=== PATIENT | female | born 1980 | race Caucasian/White ===

== ENCOUNTER → 2021-02-07 10:53 | Outpatient (CLI) | payer SELFPAY ==
[2021-02-07 10:05] VITALS: BMI 28.5
[2021-02-07 11:24] LABS: Absolute Lymphocyte Count 1.86 X10^3/uL (0.83-4.51); Absolute Neutrophil Count 6.4 X10^3/uL (2.0-7.7); Basophil# 0.05 X10^3/uL; Basophil% 0.5 % (0-1); Eosinophil# 0.19 X10^3/uL; Hematocrit 41.8 % (37-47); Hemoglobin 14.3 g/dL (12.0-15.0); Lymphocyte # 1.86 X10^3/ul (0.83-4.51); Lymphocyte % 19.8 % (19-41); Mean Corp Hgb Conc 34.2 g/dL (32-36); Mean Corpuscular Hgb 30.5 pg (27.0-32.0); Mean Corpuscular Volume 89.1 fL (81-99); Mean Platelet Vol. 9.2 fl (6.2-12.0); Monocyte# 0.84 X10^3/uL; Monocyte% 8.9 % (0-10); NRBC Flagged by Analyzer 0 % (0-5); Neutrophil # 6.43 X10^3/uL (2.7-7.7); Neutrophil % 68.5 % (47-70); Platelet Count 264 K/mm3 (150-450); RBC Distribution Width SD 38.5 fl (35.1-43.9); Red Blood Count 4.69 M/mm3 (4.2-5.4); White Blood Count 9.4 K/mm3 (4.4-11.0)
[2021-02-07 12:31] LABS: HIV - WCH Non-Reactive (Nonreactive); Hepatitis B Surface Antigen Non-Reactive (Nonreactive); Hepatitis C Antibody Non-Reactive (Nonreactive); Rubella IgG Reactive (Nonreactive); Syphilis Antibodies Non-reactive
[2021-02-07 17:54] LABS: Amphetamine Urine VISTA NEGATIVE (<1000 ng/mL); Barbiturate Urine VISTA NEGATIVE (< 200 ng/mL); Benzodiazepine Urine VISTA NEGATIVE (< 200 ng/mL); Cocaine Urine VISTA NEGATIVE (< 300 ng/mL); Ecstacy Urine VISTA NEGATIVE (< 500 ng/mL); Methadone Urine VISTA NEGATIVE (< 300 ng/mL); PCP Urine VISTA NEGATIVE (< 25 ng/mL); THC Urine VISTA NEGATIVE (< 50 ng/mL); Vista UDS pH Range 6
[2021-02-11 03:06] LABS: Chlamydia By Nucleic Acid AMP Negative (Negative)
[2021-02-11 09:49] LABS: Gonococcus By Nucleic Acid AMP Negative (Negative)
[2021-02-11 17:26] LABS: HPV APTIMA, High Risk Negative (Negative)
== END ==
PROVIDERS: PCP Family Medicine; Referring Provider Obstetrics & Gynecology; Visit Provider Obstetrics & Gynecology
DX: O09.91 Supervision of high risk pregnancy, unspecified, first trimester (principal); O09.11 Supervision of pregnancy with history of ectopic pregnancy, first trimester; O09.521 Supervision of elderly multigravida, first trimester; Z3A.00 Weeks of gestation of pregnancy not specified; Z12.4 Encounter for screening for malignant neoplasm of cervix
CPT/HCPCS: 36415; 80307; 85025; 86703; 86762; 86780; 86803; 86850; 86900; 86901; 87086; 87088; 87340; 87491; 87591; 87624; 88175; G0145

== ENCOUNTER → 2021-05-08 15:58 | Outpatient (CLI) | payer SELFPAY ==
--- NOTE | 2021-05-08 16:12 | US_ITS ---
STUDY: SECOND AND THIRD TRIMESTER OBSTETRICAL ULTRASOUND REASON FOR EXAM: Female, 40 years old anatomy TECHNIQUE: Transabdominal and Transvaginal PRIOR ULTRASOUND: None. FINDINGS: There is a single intrauterine fetus. The fetus is in a cephalic presentation. There is demonstrated cardiac activity with a heart rate of 153 bpm. There is a normal amniotic fluid volume. The largest amniotic fluid pocket measures 3.8 cm.The placenta is fundal in location. The cervix measures 4.9 cm in length and is closed. BPD: 4.8 cm = 20 weeks, 3 day(s) HC: 17.1 cm = 19 weeks, 5 day(s) AC: 14.6 cm = 19 weeks, 6 day(s) FL: 3 cm = 19 weeks, 2 day(s) EGA by ultrasound: 19 weeks 5 day(s) ENZO by ultrasound: 09/27/21 Estimated weight: 313 grams Weight percentile: 56 % ANATOMY: Cranium: Normal lateral ventricles. Normal choroid plexus. Normal cerebellum. Normal cisterna magna. Normal face, nose and lips. Chest: Normal 4-chamber heart. Abdomen/Pelvis: Normal diaphragm. Normal stomach. Normal abdominal wall. Marginal cord insertion. Normal 3 vessel cord. Normal kidneys. Normal bladder. Spine: Normal cervical spine. Normal thoracic spine. Normal lumbar spine. Normal sacrum. Extremities: Normal bilateral upper extremities. Normal bilateral lower extremities. IMPRESSION: Living intrauterine with estimated gestational age of 19 weeks and 5 days. Marginal cord insertion. Otherwise, no obvious anomalies. Electronically Signed: Maximus Ocampo MD at 18:27 EDT Tel , Service support , STUDY: SECOND AND THIRD TRIMESTER OBSTETRICAL ULTRASOUND REASON FOR EXAM: Female, 40 years old anatomy TECHNIQUE: Transabdominal and Transvaginal PRIOR ULTRASOUND: None. FINDINGS: There is a single intrauterine fetus. The fetus is in a cephalic presentation. There is demonstrated cardiac activity with a heart rate of 153 bpm. There is a normal amniotic fluid volume. The largest amniotic fluid pocket measures 3.8 cm.The placenta is fundal in location. The cervix measures 4.9 cm in length and is closed. BPD: 4.8 cm = 20 weeks, 3 day(s) HC: 17.1 cm = 19 weeks, 5 day(s) AC: 14.6 cm = 19 weeks, 6 day(s) FL: 3 cm = 19 weeks, 2 day(s) EGA by ultrasound: 19 weeks 5 day(s) ENZO by ultrasound: 09/27/21 Estimated weight: 313 grams Weight percentile: 56 % ANATOMY: Cranium: Normal lateral ventricles. Normal choroid plexus. Normal cerebellum. Normal cisterna magna. Normal face, nose and lips. Chest: Normal 4-chamber heart. Abdomen/Pelvis: Normal diaphragm. Normal stomach. Normal abdominal wall. Marginal cord insertion. Normal 3 vessel cord. Normal kidneys. Normal bladder. Spine: Normal cervical spine. Normal thoracic spine. Normal lumbar spine. Normal sacrum. Extremities: Normal bilateral upper extremities. Normal bilateral lower extremities. US/OB Anatomy Scan IMPRESSION: Living intrauterine with estimated gestational age of 19 weeks and 5 days. Marginal cord insertion. Otherwise, no obvious anomalies. Electronically Signed: Maximus Ocampo MD at 18:28 EDT Tel , Service support ,
== END ==
PROVIDERS: PCP Family Medicine; Referring Provider Obstetrics & Gynecology; Visit Provider Obstetrics & Gynecology
DX: O09.92 Supervision of high risk pregnancy, unspecified, second trimester (principal); Z3A.19 19 weeks gestation of pregnancy
CPT/HCPCS: 76805; 76817

== ENCOUNTER 2021-07-09 12:25 | Outpatient (CLI) | payer SELFPAY ==
--- NOTE | 2021-07-09 12:30 | US_ITS ---
STUDY: SECOND AND THIRD TRIMESTER OBSTETRICAL ULTRASOUND - LIMITED REASON FOR EXAM: Female, 40 years old. marginal cord insertion PRIOR ULTRASOUND: .. TECHNIQUE: Transabdominal TECHNICAL QUALITY: Adequate. FINDINGS: There is a single intrauterine fetus. The fetus is in a cephalic presentation. There is demonstrated cardiac activity with a heart rate of 144 bpm. There is a normal amniotic fluid volume. The largest amniotic fluid pocket measures 4.5 cm. The amniotic fluid index (MARGE) is 14.2 cm. The placenta is fundal in location. There are Grade 0 placental changes. The cervix measures cm in length: 4.6. BIOMETRY: BPD: 71 mm: 28 weeks, 4 days HC: 266 mm: 28 weeks, 6 days AC: 243 mm: 28 weeks, 4 days FL: 54 mm: 28 weeks, 2 days CI: 76 FL/AC: 22 FL/BPD: 75 HC/AC: 1.09 age by current US: 28 weeks, 3 days. ENZO by current US: 3.27.22. Estimated weight: 1255 grams, +/- 188 grams, 43.6 %. age by prior US: 28 weeks, 4 days. ENZO by prior US: 3.26.22. Age by LMP: 28 weeks, 3 days. ENZO by LMP: 3.27.22. ANATOMY: There is a marginal cord insertion. It is 19mm from the edge of the placenta. US/OB Limited With Biometrics IMPRESSION: There is a single live intrauterine with a heart rate of 144 bpm. age by current US: 28 weeks, 3 days. ENZO by current US: 3.27.22. Estimated weight: 1255 grams, +/- 188 grams, 43.6 %. There is a marginal cord insertion. It is 19mm from the edge of the placenta. Electronically Signed: Parish Michelle MD at 15:00 EST , Service support ,
[2021-07-09 15:19] LABS: Absolute Lymphocyte Count 1.81 X10^3/uL (0.83-4.51); Absolute Neutrophil Count 8.3 X10^3/uL (2.0-7.7); Basophil# 0.04 X10^3/uL; Basophil% 0.3 % (0-1); Eosinophil# 0.42 X10^3/uL; Eosinophils% 3.7 % (0-5); Hematocrit 35.3 % (37-47); Hemoglobin 12.2 g/dL (12.0-15.0); Lymphocyte # 1.81 X10^3/ul (0.83-4.51); Lymphocyte % 15.8 % (19-41); Mean Corp Hgb Conc 34.6 g/dL (32-36); Mean Corpuscular Hgb 31.3 pg (27.0-32.0); Mean Corpuscular Volume 90.5 fL (81-99); Monocyte# 0.86 X10^3/uL; Monocyte% 7.5 % (0-10); NRBC Flagged by Analyzer 0 % (0-5); Neutrophil # 8.27 X10^3/uL (2.7-7.7); Neutrophil % 72.3 % (47-70); Platelet Count 241 K/mm3 (150-450); RBC Distribution Width CV 12.5 % (11.6-14.6); RBC Distribution Width SD 40.9 fl (35.1-43.9); White Blood Count 11.5 K/mm3 (4.4-11.0)
[2021-07-09 15:29] LABS: Glucose Challenge Gest 1H 50g 120 mg/dL (70-140)
== END 2021-07-09 23:59 | disposition short-term general hospital (02) ==
PROVIDERS: Obstetrics & Gynecology; PCP Family Medicine; Referring Provider Nurse Practitioner Women's Health; Visit Provider Nurse Practitioner Women's Health
DX: O43.123 Velamentous insertion of umbilical cord, third trimester (principal); Z3A.28 28 weeks gestation of pregnancy; Z13.1 Encounter for screening for diabetes mellitus
CPT/HCPCS: 36415; 76816; 82950; 85025

== ENCOUNTER 2021-08-08 12:17 | Outpatient (CLI) | payer SELFPAY ==
--- NOTE | 2021-08-08 12:21 | US_ITS ---
STUDY: SECOND AND THIRD TRIMESTER OBSTETRICAL ULTRASOUND - LIMITED REASON FOR EXAM: Female, 40 years old marginal cord insertion, growth LMP: 12/22/2020. PRIOR ULTRASOUND: Comparison is made with prior study dated 01/06/2022. TECHNIQUE: Transabdominal TECHNICAL QUALITY: Adequate. FINDINGS: There is a single intrauterine fetus. The fetus is in a cephalic presentation. There is demonstrated cardiac activity with a heart rate of 144 bpm. There is a normal amniotic fluid volume. The largest amniotic fluid pocket measures 4 cm. The amniotic fluid index (MARGE) is 13.6 cm. The placenta is anterior and fundal in location and is not low lying. There are Grade 1 placental changes. The cervix measures 3.81 cm in length. Once again, the marginal cord insertion is at 1.9 cm from the edge of the placenta. BIOMETRY: BPD: 8.4 cm: 32 weeks, 3 days HC: 30.13 cm: 33 weeks, 4 days AC: 28.15 cm: 32 weeks, 2 days FL: 6.34 cm: 32 weeks, 6 days Age by LMP: 32 weeks, 5 days. ENZO by LMP: 09/28/2021. age by prior US: 32 weeks, 5 days. ENZO by prior US: 09/28/2021. age by current US: 32 weeks, 6 days. ENZO by current US: 09/27/2021. Estimated weight: 1988 grams, +/- 290 grams, 33 percentile. US/OB Limited With Biometrics IMPRESSION: Single live intrauterine gestation with a mean gestational age of 32 weeks and 5 days. The measurements obtained today fall within normal expected range. Stable appearance of the marginal cord insertion at 1.9 cm from the placental edge. Electronically Signed: Kvng Boothe MD at 13:33 EST ,
== END 2021-08-08 23:59 | disposition short-term general hospital (02) ==
LOC: US 12:18
PROVIDERS: PCP Family Medicine; Referring Provider Nurse Practitioner Women's Health; Visit Provider Nurse Practitioner Women's Health
DX: Z34.93 Encounter for supervision of normal pregnancy, unspecified, third trimester (principal); Z3A.32 32 weeks gestation of pregnancy
CPT/HCPCS: 76816

== ENCOUNTER 2021-09-05 14:30 | Outpatient (CLI) | payer SELFPAY ==
--- NOTE | 2021-09-05 14:33 | US_ITS ---
STUDY: SECOND AND THIRD TRIMESTER OBSTETRICAL ULTRASOUND - LIMITED REASON FOR EXAM: Female, 41 years old. growth PRIOR ULTRASOUND: 2.. TECHNIQUE: Transabdominal TECHNICAL QUALITY: Adequate. FINDINGS: There is a single intrauterine fetus. The fetus is in a cephalic presentation. There is demonstrated cardiac activity with a heart rate of 145 bpm. There is a normal amniotic fluid volume. The largest amniotic fluid pocket measures 3.5 cm. The amniotic fluid index (MARGE) is 9.8 cm. The placenta is fundal in location. There are Grade 3 placental changes. The cervix is obscured by overlying bowel gas and cannot be identified. . BIOMETRY: BPD: 88 mm: 35 weeks, 2 days HC: 321 mm: 36 weeks, 2 days AC: 327 mm: 36 weeks, 4 days FL: 67 mm: 34 weeks, 4 days CI: NA FL/AC: 20 FL/BPD: 77 HC/AC: .98 age by current US: 36 weeks, 0 days. ENZO by current US: 4.1.22. Estimated weight: 2821 grams, +/- 423 grams, 36 %. age by prior US: 36 weeks, 6 days. ENZO by prior US: 3.26.22. Age by LMP: 36 weeks, 5 days. ENZO by LMP: 3.27.22. US/OB Limited With Biometrics IMPRESSION: There is a single live intrauterine with a heart rate of 145 bpm. age by current US: 36 weeks, 0 days. ENZO by current US: 4.1.22. Estimated weight: 2821 grams, +/- 423 grams, 36 %. Electronically Signed: Parish Michelle MD at 21:29 EST ,
== END 2021-09-05 23:59 | disposition home or self-care (01) ==
PROVIDERS: PCP Family Medicine; Visit Provider Nurse Practitioner Women's Health
DX: O09.13 Supervision of pregnancy with history of ectopic pregnancy, third trimester (principal); Z3A.32 32 weeks gestation of pregnancy
CPT/HCPCS: 76816; 87077; 87081; 87186

== ENCOUNTER 2021-09-11 12:18 | Inpatient (IN) | payer SELFPAY ==
[2021-09-11] VITALS (57 sets, daily range): BP systolic 86–146; BP diastolic 50–82; PULSE 97–134; TEMP 36.2–36.8; O2SAT 96–100; BMI 31.4
[2021-09-11 12:16] LABS: ROM Internal Control Test YES-OK TO RESULT pt. (Internal QC)
[2021-09-11 12:17] LABS: ROM Patient Test POSITIVE (Negative)
--- NOTE | 2021-09-11 13:14 | HP.PCM.OB_ITS ---
HPI - General General Date of Admission: 09/11/21 HPI Narrative GLORIA CHAPIN, is a 41 y/o @ 37 weeks 4 days F who presents to L&D with rupture of membranes confirmed with ROM+. She denies vaginal bleeding or dec fm. She does not feel contractions yet at this time. Maternal Data Information ENZO Calculator Estimated Delivery Date Method Current WG Current Estimate 09/28/21 Ultrasound #1 37w 4d Other Estimates 09/14/21 LMP (Certain) 39w 4d PFSH PFSH Home Medications Lactobacillus acidophilus 1.5 mg (250 million cell) capsule 100 mmu cells PO DAILY 02/05/21 [History Last Taken 09/10/21 20:00 100 mmu] citalopram 20 mg tablet 20 mg PO DAILY 02/05/21 [History Last Taken 09/10/21 20:00 20 mg] prenat.vits,aissatou,nym-mnnb-lznvb 1 tab PO DAILY 02/05/21 [History Last Taken 09/10/21 20:00 1 tab] Allergy/AdvReac Type Severity Reaction Status Date / Time No Known Allergies Allergy Verified 09/11/21 11:40 Family History Father CAD (coronary artery disease) Myocardial infarction Surgical History H/O unilateral salpingectomy Social History adopted: No household members: spouse current occupational status: employed current occupation: [employer] pets and animals: No Smoking Status: Never smoker alcohol intake: current details: social-not while substance use type: does not use History 2 Elective abortions Hx Para Spontaneous abortions Hx # Term Pregnancies Ectopic pregnancies 1 Hx # Pregnancies Multiple births # of living children Past Pregnancies Del. Date Name GA/Weeks Outcome Route Bth Weight Infant Gen Labor Lgth Anes the malcolm Del [place] Provider FOB Unknown 10/2020 right salpingectomy/Hernandez ectopic Visit Details Expected Delivery Route/Plan Labor Preferences- CB/BF classes: encouraged labor support person: Ariel labor intervention preferences: pain management options preferred: epidural cut cord/dad catch: yes : yes PP control planned: discussed discussed possible routes of delivery and associated risks: [] special requests: [] Plans Covid status: non immune, counseled regarding risk of covid in vs vaccination and declined vaccination Flu vaccine: declines Tdap vaccine: declines Rhogam: na LARC form signed: yes Problem list reviewed and updated with the most current plan of care details and appropriate orders placed. Relevant counseling for the gestational age provided. Continue routine care and follow up unless otherwise noted in visit notes/problem list details OB Flowsheet Initial Weight: Not Recorded Date -?-?-?-?-?-?-?-?-?-?-?-?- EGA Weight BP Urine Prot -?-?-?-?-?-?-?-?-?-?-?-?- Glucose FHR FuHt Pres Dilation -?-?-?-?-?-?-?-?-?-?-?-?- Effaced St Visit Note 02/07/21 -?-?-?-?-?-?-?-?-?-?-?-?- 6w 5d 177 lb 4 oz 120/78 -?-?-?-?-?-?-?-?-?-?-?-?- 113 -?-?-?-?-?-?-?-?-?-?-?-?- GP - CRL 8mm NOT consistent with LMP. New ENZO 09/28/21 02/27/21 -?-?-?-?-?-?-?-?-?-?-?-?- 9w 4d 179 lb 2 oz 130/80 Nega tive -?-?-?-?-?-?-?-?-?-?-?-?- Negative 160 -?-?-?-?-?-?-?-?-?-?-?-?- GP - no cramping or bleeding. FHR now in normal range. 03/24/21 -?-?-?-?-?-?-?-?-?-?-?-?- 13w 1d 175 lb 124/82 Negative -?-?-?-?-?-?-?-?-?-?-?-?- Negative 153 -?-?-?-?-?-?-?-?-?-?-?-?- GP - no cramping or bleeding. Anatomy scan ordered. 04/23/21 -?-?-?-?-?-?-?-?-?-?-?-?- 17w 3d 178 lb 4 oz 122/70 Nega tive -?-?-?-?-?-?-?-?-?-?-?-?- Negative 156 -?-?-?-?-?-?-?-?-?-?-?-?- -No VB,LOF. An atomy US 05/08. Denies concerns. Declines flu vaccine 05/23/21 -?-?-?-?-?-?-?-?-?-?-?-?- 21w 5d 184 lb 120/78 Negative -?-?-?-?-?-?-?-?-?-?-?-?- Negative 150 22 -?-?-?-?-?-?-?-?-?-?-?-?- JV- marginal cor d insertion discussed. plan for weekly growth scans. 06/20/21 -?-?-?-?-?-?-?-?-?-?-?-?- 25w 5d 188 lb 6 oz 126/64 Nega tive -?-?-?-?-?-?-?-?-?-?-?-?- Negative 150 26 -?-?-?-?-?-?-?-?-?-?-?-?- Sm- no vb lof go od fm no regular ctx. 07/09/21 -?-?-?-?-?-?-?-?-?-?-?-?- 28w 3d 192 lb 120/72 Negative -?-?-?-?-?-?-?-?-?-?-?-?- Negative 154 27 -?-?-?-?-?-?-?-?-?-?-?-?- MH-No VB, LOF. G ood FM. 28 wk labs and larc. Declines tdap. 07/25/21 -?-?-?-?-?-?-?-?-?-?-?-?- 30w 5d 194 lb 8 oz 100/60 Nega tive -?-?-?-?-?-?-?-?-?-?-?-?- Negative 160 30 -?-?-?-?-?-?-?-?-?-?-?-?- SM- no vb lof go od fm no regular ctx, co sciatic pain 08/08/21 -?-?-?-?-?-?-?-?-?-?-?-?- 32w 5d 197 lb 111/71 Negative -?-?-?-?-?-?-?-?-?-?-?-?- Negative 145 33 -?-?-?-?-?-?-?-?-?-?-?-?- SM- no vb lof go od fm no regular 08/22/21 -?-?-?-?-?-?-?-?-?-?-?-?- 34w 5d 195 lb 114/70 Negative -?-?-?-?-?-?-?-?-?-?-?-?- Negative 145 35 -?-?-?-?-?-?-?-?-?-?-?-?- SM- no vb lof go od fm no regular ctx 09/05/21 -?-?-?-?-?-?-?-?-?-?-?-?- 36w 5d 197 lb 8 oz 120/64 Trac e -?-?-?-?-?-?-?-?-?-?-?-?- Negative 140 36 Cephalic 0 .5 -?-?-?-?-?-?-?-?-?-?-?-?- SM- no vb lof go od fm no reuglar ctx gbs done 09/11/21 -?-?-?-?-?-?-?-?-?-?-?-?- 37w 4d 197 lb 130/70 Negative -?-?-?-?-?-?-?-?-?-?-?-?- Negative -?-?-?-?-?-?-?-?-?-?-?-?- 09/11/21 -?-?-?-?-?-?-?-?-?-?-?-?- 37w 4d 195 lb 135/82 -?-?-?-?-?-?-?-?-?-?-?-?- -?-?-?-?-?-?-?-?-?-?-?-?- ROS Constitutional Constitutional: Denies change in weight, fatigue, fever(s), headache(s), poor appetite or weakness Eyes Eyes: Denies blurry vision, change in vision, seeing flashes or spots in vision ENT HEENT: Denies dizziness, headache(s), loss taste/smell or sore throat Cardiovascular Cardiovascular: Denies chest pain, dizziness, dyspnea, irregular heart rhythm, leg edema, palpitations, rapid heart rate or vomiting Respiratory/Chest Respiratory/Chest: Denies chest tightness, cough, dyspnea or breast pain Gastrointestinal Gastrointestinal: Denies abdominal pain, anorexia, constipation, cramping, diarrhea, hemorrhoids, vomiting or weight changes Genitourinary Genitourinary: Denies dysuria, flank pain, genital lesions, genital pain, urinary frequency or urinary urgency Musculoskeletal Musculoskeletal: Denies back pain, difficulty walking, joint pain, limited range of motion, muscle cramps or numbness Integumentary Integumentary: Denies lesions or unusual bruising Neurologic Neurologic: Denies abnormal movements, abnormal speech, dizziness, numbness, seizure-like activity or syncope Psychiatric Psychiatric: Denies anxiety, behavioral changes, change in appetite, change in libido, cognitive impairment, confusion, depression, difficulty concentrating, hallucinations or suicidal thoughts Endocrine Endocrinology: Denies excessive sweating, polydipsia or polyuria Hematologic/Lymphatic Hematologic/Lymphatic: Denies easy bleeding, easy bruising or lymphadenopathy Allergic/Immunologic Allergic/Immunologic: Denies itchy eyes, lip swelling, seasonal rhinorrhea, rhinitis, throat swelling, tongue swelling, eczemia, wheezing or asthma Vital Signs Vital Signs Vital Signs: 09/11/21 11:36 09/11/21 11:38 Temperature 98.0 F Temperature Source Temporal Pulse Rate 100 Blood Pressure 135/82 H BP Systolic 135 BP Diastolic 82 Weight Weight: 195 lb Body Mass Index (BMI) 31.4 Physical Exam Const alert, oriented x3, no apparent distress and healthy appearing General Appearance: cooperative; Negative for anxious HEENT normocephalic Face and Sinus: normal facial exam Eyes EOMs intact bilaterally and no scleral icterus General Eye: normal appearance of both eyes Neck full ROM and supple Lymph Lymphatic: no lymphadenopathy noted Chest Chest: abnormal inspection of the chest Resp normal respiratory effort Effort and Inspection: able to speak in complete sentences Cardio regular rate GI soft to palpation and non-tender Inspection: gravid Palpation: soft; Negative for tender external exam normal Amniotic Fluid: ROM+plus and other cx is 1/ 90/-2, vertex presentation Back/Spine no CVA tenderness Extremity normal to inspection, full ROM and no clubbing, cyanosis or edema General Extremity: Negative for calf tenderness or edema Skin Lesions: no lesions Rashes: no rashes Psych mental status grossly normal Labs Labs Labs: Blood Type A POSITIVE Antibody Screen NEGATIVE Hct 35.3 % (37-47) L Hgb 12.2 g/dL (12.0-15.0) Obstetrics US Syphilis Total Ab Non-reactive Rubella IgG Antibody Reactive (Nonreactive) Hep Bs Antigen Non-Reactive (Nonreactive) Neisseria gonorrhoeae DNA (FAVIAN) Negative (Negative) HIV 1&2 Antibody Non-Reactive (Nonreactive) Glucose 1 Hr 50 gm 120 mg/dL (70-140) Assessment & Plan (1) Positive GBS test: COMMENT: PCN in labor (2) Marginal insertion of umbilical cord: COMMENT: growth US Q4wk at 28 wk(43%) rpt 32 and 36 wk. NL growth on 08/08/21 (3) Anxiety and depression: COMMENT: celexa, counseling encouraged. stable (4) Family history of spina bifida: COMMENT: maternal uncle/hydrocephalic also (5) Supervision of high risk , antepartum: COMMENT: PRR ENZO 09/28/21 Spouse: Ariel (6) : QUALIFIERS: Weeks of gestation: 37 weeks Qualified Code(s): Z3A.37 - 37 weeks gestation of COMMENT: Declines NIPT, carrier, and AFP. anatomy reviewed. GBS positive (7) AMA (advanced maternal age) multigravida 35+: QUALIFIERS: Trimester: first trimester Qualified Code(s): O09.521 - Supervision of elderly multigravida, first trimester COMMENT: Declines genetic testing (8) with history of ectopic : QUALIFIERS: Trimester: first trimester Qualified Code(s): O09.11 - Supervision of with history of ectopic , first trimester COMMENT: 11/01/20 Ashley DUARTE PLAN: Patient presents IOL, plan management for with pitocin. Pain management: plans nitrous gas and possibly epidural. GBS positive- start pcn now. Management of any complications: none I have reviewed the [facility] and made any clinically relevant updates.
[2021-09-11] MEDS: Lactated Ringers 1,000 ML 50 ML IV (13:51)
[2021-09-11 14:03] LABS: Absolute Lymphocyte Count 1.79 X10^3/uL (0.83-4.51); Basophil# 0.03 X10^3/uL; Basophil% 0.3 % (0-1); Eosinophil# 0.32 X10^3/uL; Eosinophils% 3.2 % (0-5); Hematocrit 36.7 % (37-47); Hemoglobin 12.6 g/dL (12.0-15.0); Lymphocyte # 1.79 X10^3/ul (0.83-4.51); Lymphocyte % 17.7 % (19-41); Mean Corp Hgb Conc 34.3 g/dL (32-36); Mean Corpuscular Hgb 30.7 pg (27.0-32.0); Mean Corpuscular Volume 89.3 fL (81-99); Mean Platelet Vol. 9.3 fl (6.2-12.0); Monocyte# 0.92 X10^3/uL; Monocyte% 9.1 % (0-10); NRBC Flagged by Analyzer 0 % (0-5); Neutrophil # 6.99 X10^3/uL (2.7-7.7); Neutrophil % 68.8 % (47-70); Platelet Count 259 K/mm3 (150-450); RBC Distribution Width SD 42.5 fl (35.1-43.9); Red Blood Count 4.11 M/mm3 (4.2-5.4); White Blood Count 10.1 K/mm3 (4.4-11.0)
[2021-09-11] MEDS: Oxytocin 30 units/NS 500 ml 30 UNITS/500 ML IV.SOLN IV (15:14)
[2021-09-11] MEDS: Penicillin G 3,000,000 Units 50 ML 75 UNITS IV ×2 (18:19→22:39)
[2021-09-11] MEDS: Lactated Ringers 500 ML 999 ML IV ×2 (18:56→19:57)
[2021-09-11] MEDS: fentaNYL-bupivacaine (epidural) 100 ML BAG EPIDURAL ×2 (19:31→23:36)
[2021-09-11] MEDS: Lactated Ringers 1,000 ML 200 ML IV (23:32)
[2021-09-12] VITALS (37 sets, daily range): BP systolic 95–128; BP diastolic 53–71; PULSE 102–128; RESP 16–20; TEMP 36.2–36.9; O2SAT 81–100
[2021-09-12] MEDS: Penicillin G 3,000,000 Units 50 ML 75 UNITS IV ×2 (02:27→06:49)
[2021-09-12] MEDS: 0.9% Saline Lock 10 ML Syringe IV (04:24)
[2021-09-12] MEDS: Ondansetron 4 MG/2 ML Vial IV (04:24)
[2021-09-12] MEDS: Lactated Ringers 1,000 ML 200 ML IV (04:38)
[2021-09-12] MEDS: fentaNYL-bupivacaine (epidural) 100 ML BAG EPIDURAL (04:38)
[2021-09-12] MEDS: Oxytocin 30 units/NS 500 ml 30 UNITS/500 ML IV.SOLN 334 UNITS IV (07:32)
--- NOTE | 2021-09-12 08:05 | OP.PCM_ITS ---
Assessment & Plan (1) Positive GBS test: COMMENT: PCN in labor (2) Marginal insertion of umbilical cord: COMMENT: growth US Q4wk at 28 wk(43%) rpt 32 and 36 wk. NL growth on 08/08/21 (3) Anxiety and depression: COMMENT: celexa, counseling encouraged. stable (4) Family history of spina bifida: COMMENT: maternal uncle/hydrocephalic also (5) Supervision of high risk , antepartum: COMMENT: PRR ENZO 09/28/21 Spouse: Ariel (6) : QUALIFIERS: Weeks of gestation: 37 weeks Qualified Code(s): Z3A.37 - 37 weeks gestation of COMMENT: Declines NIPT, carrier, and AFP. anatomy reviewed. GBS positive (7) AMA (advanced maternal age) multigravida 35+: QUALIFIERS: Trimester: first trimester Qualified Code(s): O09.521 - Supervision of elderly multigravida, first trimester COMMENT: Declines genetic testing (8) with history of ectopic : QUALIFIERS: Trimester: first trimester Qualified Code(s): O09.11 - Supervision of with history of ectopic , first trimester COMMENT: 11/01/20 Ashley Son RS Maternal Data Information ENZO Calculator Estimated Delivery Date Method Current WG Current Estimate 09/28/21 Ultrasound #1 37w 5d Other Estimates 09/14/21 LMP (Certain) 39w 5d Vaginal Delivery Maternal Presentation Maternal Presentation: SROM Type of Induction: Pitocin Operative Information Date of Procedure: 09/12/21 Pre-Operative Diagnosis: 37 weeks 2 days , PROM, maternal exhaustion Post-Operative Diagnosis: 37 weeks 2 days , PROM, maternal exhaustion Surgery / Procedure Performed: Vacuum Assisted Vaginal Delivery Type of Anesthesia: Epidural Estimated Blood Loss: 200cc Findings Description of Procedure: Patient began pushing at 4 am and progressed from +1 station to +3 station over 3 hours and requested vacuum assistance. After verbal consent and discussion of the risks, benefits, and alternatives, the kiwi vacuum was applied to the head superior to the posterior fontanelle. The kiwi was activated to the green zone and pulled one time while the patient pushed for 3 ten second intervals . The head was delivered in the DEAN presentation. The head was delivered atraumatically and a loose nuchal cord ?1 was identified and easily reduced over the infant's head. The anterior and posterior shoulders delivered without complication followed by the rest of the infant and the infant was placed on the maternal abdomen. Delayed cord clamping was employed for approximately 60 seconds. Cord was clamped and cut and gentle traction was applied to the cord and the placenta delivered spontaneously immediately foll owing it was noted to be intact with three-vessel cord. The perineum and vagina were inspected and noted to have a second degree laceration. This was repaired using a 2-0 vicryl suture. EBL was 200c. Patient and tolerated delivery well. Presentation: Vertex Amniotic Membrane Rupture Type: Spontaneous Amniotic Fluid Description: Clear Placental Delivery Description: Spontaneous Placenta Disposition: [facility] Cord Vessel Description: 3 Vessels Nuchal Cord Compression: Without compression Infant A Gender: Male (1 minute): 7 (5 minute): 9 Delayed Cord Clamping: Yes Multi Select Codes Urinary/Genital Urinary/Genital CPT Codes: 49677 Vaginal Delivery [facility]
--- NOTE | 2021-09-12 08:14 | PCM.DC ---
Discharge Instructions Diet Discharge Diet: No restrictions Activity Discharge Activity: Return to Normal Activity, May Not Drive (while taking narcotic pain medications.) and May Shower May resume sexual activity in: 4-6 weeks Dressing / Incision Call your doctor if your incision/area has: Continuous Slow Oozing, Sudden Increased Bleeding, Increased Pain/ Swelling, Increased Redness and Foul Smelling Discharge Follow Up Care Please Follow Up With: Kaylan Barker DO When: Call [phone] to make an appointment with your doctor in 6 weeks. If you had elevated blood pressure or 4th degree laceration, you will need to be seen in 2 weeks. Test Results: Test results from this visit will be discussed in further detail at your follow-up appointment, if applicable. Discharge Plan Admission Admit Date/Time: 09/11/21 12:18 Primary Reason for Your Visit: vaginal delivery Attending Provider: Kaylan Barker Primary Care Provider: Hai Doran Discharge Orders/Prescriptions Prescriptions: New ibuprofen 800 mg tablet 800 mg PO Q8H PRN (Reason: pain) 7 Days Qty: 30 RF: 0 Continued citalopram 20 mg tablet 20 mg PO DAILY RF: 0 prenat.vits,aissatou,ibp-wfzq-gxlpp Tablet 1 tab PO DAILY RF: 0 Probiotic Acidophilus 1.5 mg (250 million cell) capsule 100 mmu cells PO DAILY RF: 0 Referrals / Follow Up: Hai Doran DO [Primary Care Provider] - Disposition Disposition (needs filled in before D/C Order can be placed): Home, Self Care
[2021-09-12] MEDS: Benzocaine/Lanolin/Aloe Vera 1 SPRAY EACH TOPICAL (14:38)
[2021-09-12] MEDS: Senna/Docusate Sodium 1 Tablet PO (14:38)
[2021-09-12] MEDS: Ibuprofen 600 MG Tablet PO ×2 (16:29→23:20)
[2021-09-13 00:30] VITALS: BP 111/60; PULSE 108; RESP 18; TEMP 36.1; O2SAT 97
--- NOTE | 2021-09-13 04:02 | PCM.PN.OB ---
Subjective Subjective Patient doing well without complaints. Tolerating PO. Ambulating and voiding without difficulty. feeding well. Denies chest pain, shortness of breath, calf pain/swelling, fevers, chills, lightheadedness. Objective Data Objective Data Vital Signs: Vital Signs Temp Pulse Resp BP Pulse Ox 96.9 F L 108 H 18 111/60 97 09/13/21 00:30 09/13/21 00:30 09/13/21 00:30 09/13/21 00:30 09/13/21 00:30 Oxygen Delivery Method Room Air Weight: 195 lb Body Mass Index (BMI) 31.4 Intake & Output: Intake and Output for Last 24 Hours 09/11/21 09/12/21 09/13/21 23:59 23:59 23:59 Intake Total 2036.97 / 2536.97 2967.30 / 2967.30 Output Total 3100 / 3100 Balance 2036.97 / 1736.97 -132.70 / -132.70 Lab / Micro Data Result Diagrams: 09/11/21 13:40 Micro: Microbiology 09/11/21 13:40 Nasal Secretion SARS-CoV-2 Antigen (Rapid) - Final ROS Constitutional Constitutional: Reports systems reviewed and no addt'l complaints, except as documented Cardiovascular Cardiovascular: Reports systems reviewed and no addt'l complaints, except as documented Respiratory/Chest Respiratory/Chest: Reports systems reviewed and no addt'l complaints, except as documented Gastrointestinal Gastrointestinal: Reports systems reviewed and no addt'l complaints, except as documented Physical Exam Const alert, oriented x3 and no apparent distress HEENT Head and Scalp: atraumatic Resp normal respiratory effort GI soft to palpation and non-tender Bimanual Exam - Vag & Uterus: uterus non-tender Uterus Palpation: uterus fundus firm (below Umbilicus) Assessment & Plan (1) Vaginal delivery: COMMENT: JV VAVD SROM 38 PLAN: s/p PPD # 1 1. routine post delivery care 2. breast feeding- support given 3. rh positive 4. rubella immune
[2021-09-13 04:09] VITALS: BP 102/59; PULSE 103; RESP 16; TEMP 36.2; O2SAT 98
[2021-09-13 08:53] VITALS: BP 121/77; PULSE 106; RESP 16; TEMP 36.2; O2SAT 97
[2021-09-13 11:39] VITALS: BP 126/69; PULSE 117; RESP 16; TEMP 36.3; O2SAT 96
[2021-09-13] MEDS: Ibuprofen 600 MG Tablet PO (11:50)
[2021-09-13 16:25] VITALS: BP 116/71; PULSE 109; RESP 16; TEMP 36.5; O2SAT 97
--- NOTE | 2021-09-13 17:59 | CASEMGMT ---
Social Work Assessment Labor and Delivery Unit Date of Referral: 09/12/2021 Time of Referral: none noted. Referred By: Dr. Kaylan Barker Date of Intervention: 09/13/2021 Time of Intervention: 17:59 Reason for Referral: Mother of baby (MOB) with history of depression and anxiety. History obtained from: MOB, Father of baby (FOB), chart, and nursing staff. Household composition: MOB, FOB, Ariel Montes and now this infant. This is first for both MOB and FOB. Patient's parent/guardian status: MOB and FOB have been for 3 years. MOB reports supportive relationship from FOB. MOB and FOB report that was planned. MOB with miscarriage ?tubal? 3 months prior to becoming with infant. Medical History: MOB with history prior to delivery of this . MOB with vaginal delivery at 37 weeks. Infant born on 09/12/2021 and to be named Aidan Montes. MOB with appropriate care with first visit on 02/07/2021. Infant apgars of 7 and 9 at 1min and 5min. weight of 2630g. MOB plans to breastfeed infant. Educational Status: MOB denies any issues with comprehension or understanding. Financial Status: MOB denies financial concerns. MOB is taking the next ?6 months off? working. FOB reports to be working full-time and is able to have the next week off work to be with MOB and infant. Supplies: MOB reports to have needed infant supplies including a car seat and crib. Childcare/Caregiver(s): MOB plans to be primary caregiver for . MOB not sure if MOB will return to working. Transportation: MOB denies issues or concerns with transportation. Programs/Agencies Involved: MOB denies any active community resource/services. Children Services/Legal Issues: MOB denies any legal issues or history of children services involvement. Behavioral Health Issues: MOB reports history of depression and anxiety. MOB currently prescribed celexa and this is helpful. MOB denies active counseling but reports a history of counseling in 2011. MOB reports history of suicidal thoughts in 2011 and that is when MOB started celexa. MOB denies any current suicidal thoughts, plans, intents or thoughts since 2011. MOB denies suicidal attempt. This mental health social worker able to broach topic of depression and anxiety signs and symptoms with MOB. MOB engaged in conversation with this mental health social worker. Substance Use History: MOB denies substance abuse/use and had negative tox screen on 02/07/2021. PHQ9: Did not trigger. Family/Social Stressors: MOB denies any stressors outside adjusting to live with a . Support Systems: MOB reports support from MOB and FOB?s families. MOB reports that family lives ?just [place] few miles down the road.? Depression and Anxiety/Shaken Baby/Safe Sleeping: This mental health social worker provided MOB with resources on depression and anxiety as well as shaken baby, safe sleeping and local counseling agencies. MOB reports to be comfortable reaching out to certified medical transcriptionist if more support is needed for mental health. MOB and FOB responding appropriately to safe sleeping and shaken baby prompts. ASSESSMENT: This mental health social worker met with MOB and FOB in room along with . MOB attempting to breastfeed infant when this mental health social worker entered the room. Introduced self and mental health social worker role. MOB agreeable to meet with this mental health social worker and provided verbal permission for this mental health social worker to speak openly with FOB present. MOB denies concerns on returning to home. MOB and FOB report a connection with infant. MOB with positive and engaged affect throughout assessment. MOB and FOB both gazing at infant often during assessment. Active support and listening provided. PLAN: Infant to discharge to home with MOB and FOB. Nursing staff updated on above plan. No other services requested or indicated. Candido BRISENO, AMANDA
[2021-09-13 20:10] VITALS: BP 116/75; PULSE 105; RESP 16; TEMP 36.4; O2SAT 98
[2021-09-14 01:20] VITALS: BP 118/70; PULSE 100; RESP 16; TEMP 36.4; O2SAT 97
[2021-09-14] MEDS: Ibuprofen 600 MG Tablet PO ×2 (01:29→08:15)
--- NOTE | 2021-09-14 07:09 | PCM.PN.OB ---
Subjective Subjective Patient doing well without complaints. Tolerating PO. Ambulating and voiding without difficulty. feeding well. Denies chest pain, shortness of breath, calf pain/swelling, fevers, chills, lightheadedness. Objective Data Objective Data Vital Signs: Vital Signs Temp Pulse Resp BP Pulse Ox 97.6 F L 100 16 118/70 97 09/14/21 01:20 09/14/21 01:20 09/14/21 01:20 09/14/21 01:20 09/14/21 01:20 Oxygen Delivery Method Room Air Weight: 195 lb Body Mass Index (BMI) 31.4 Intake & Output: Intake and Output for Last 24 Hours 09/12/21 09/13/21 09/15/21 23:59 23:59 00:59 Intake Total 2967.30 / 2967.30 Output Total 3100 / 3100 Balance -132.70 / -132.70 Lab / Micro Data Result Diagrams: 09/11/21 13:40 Micro: Microbiology 09/11/21 13:40 Nasal Secretion SARS-CoV-2 Antigen (Rapid) - Final ROS Constitutional Constitutional: Reports systems reviewed and no addt'l complaints, except as documented Cardiovascular Cardiovascular: Reports systems reviewed and no addt'l complaints, except as documented Respiratory/Chest Respiratory/Chest: Reports systems reviewed and no addt'l complaints, except as documented Gastrointestinal Gastrointestinal: Reports systems reviewed and no addt'l complaints, except as documented Physical Exam Const alert, oriented x3 and no apparent distress HEENT Head and Scalp: atraumatic Resp normal respiratory effort GI soft to palpation and non-tender Bimanual Exam - Vag & Uterus: uterus non-tender Uterus Palpation: uterus fundus firm (below Umbilicus) Assessment & Plan (1) Vaginal delivery: COMMENT: BOWEN VAVD SROM 38 (2) Anxiety and depression: COMMENT: celexa, counseling encouraged. stable PLAN: s/p PPD # 2 1. routine post delivery care 2. breast feeding- support given 3. rh positive 4. rubella immune
[2021-09-14 08:16] VITALS: BP 131/75; PULSE 107; RESP 16; TEMP 36.2; O2SAT 97
[2021-09-14] MEDS: Senna/Docusate Sodium 1 Tablet PO (13:32)
[2021-09-14 13:34] VITALS: BP 115/69; PULSE 103; RESP 16; TEMP 36.3; O2SAT 96
== END 2021-09-14 15:43 | disposition home or self-care (01) | DRG 807 ==
LOC: WPOUT 12:20 → WP 12:20
PROVIDERS: Admitting Provider Obstetrics & Gynecology; PCP Family Medicine; Referring Provider Obstetrics & Gynecology; Visit Provider Obstetrics & Gynecology
DX: O42.92 Full-term premature rupture of membranes, unspecified as to length of time between rupture and onset of labor (principal); Z37.0 Single live birth; O99.344 Other mental disorders complicating childbirth; F32.A Depression, unspecified; F41.9 Anxiety disorder, unspecified; O43.193 Other malformation of placenta, third trimester; O70.1 Second degree perineal laceration during delivery; O99.824 Streptococcus B carrier state complicating childbirth; O75.81 Maternal exhaustion complicating labor and delivery; O69.81X0 Labor and delivery complicated by cord around neck, without compression, not applicable or unspecified; Z3A.37 37 weeks gestation of pregnancy; Z87.59 Personal history of other complications of pregnancy, childbirth and the puerperium; Z82.79 Family history of other congenital malformations, deformations and chromosomal abnormalities
CPT/HCPCS: 59025; 59050; 84112; 85025; 86850; 86900; 86901; 87426; 99218; J7120; A4216; G0378; J2405

== ENCOUNTER → 2022-11-18 | Outpatient (CLI) | payer SELFPAY ==
--- NOTE | 2022-11-18 13:33 | BI_ITS ---
MAMMOGRAPHY - BILATERAL SCREENING REASON FOR EXAM: Female, 42 years old. Routine annual screening examination. PERTINENT HISTORY: Mother with breast cancer. Aunt with breast cancer. TECHNIQUE: Digital bilateral breast jim (3D mammographic acquisition) in the CC and MLO projections. 2-D mediolateral oblique (MLO) and craniocaudad (CC) views of both breasts were obtained. CAD: Full Field Digital Mammography with Computer Added Detection was performed. COMPARISON: Comparison is made with prior outside examination February 10, 2018. FINDINGS: Breast Composition: The breasts are extremely dense, which lowers the sensitivity of mammography. There are no dominant masses or suspicious calcifications. Stable small benign-appearing bilateral axillary lymph nodes. No other significant abnormalities are identified. There has been no significant change since the prior study. BI/SCRN MAMM (CAD)W/JIM BILAT IMPRESSION: Stable bilateral screening mammogram. Yearly follow-up mammogram recommended. (A) ASSESSMENT CATEGORY: BIRADS Category 2: Benign. A letter regarding these results will be sent to the patient by the facility within 30 days. Approximately 10% of breast cancers are not detected by mammography. A normal mammogram should not delay biopsy of a clinically suspicious abnormality. [id number] Electronically Signed: Kvng Boothe MD at 14:29 EDT ,
== END | disposition home or self-care (01) ==
LOC: OPBI 13:29
PROVIDERS: PCP Family Medicine; Referring Provider Obstetrics & Gynecology; Visit Provider Obstetrics & Gynecology
DX: Z12.31 Encounter for screening mammogram for malignant neoplasm of breast (principal); Z80.3 Family history of malignant neoplasm of breast
CPT/HCPCS: 77063; 77067

== ENCOUNTER → 2023-03-09 | Outpatient (CLI) | payer SELFPAY ==
[2023-03-12 13:07] LABS: Chlamydia By Nucleic Acid AMP Negative (Negative); Gonococcus By Nucleic Acid AMP Negative (Negative)
== END | disposition home or self-care (01) ==
PROVIDERS: PCP Family Medicine; Referring Provider Obstetrics & Gynecology; Visit Provider Obstetrics & Gynecology
DX: Z34.90 Encounter for supervision of normal pregnancy, unspecified, unspecified trimester (principal)
CPT/HCPCS: 87077; 87086; 87088; 87186; 87491; 87591

== ENCOUNTER 2023-03-30 09:07 | Day surgery (SDC) | payer SELFPAY ==
[2023-03-30] VITALS (7 sets, daily range): BP systolic 98–121; BP diastolic 62–68; PULSE 63–77; RESP 14–16; TEMP 36.6–36.8; O2SAT 96–100; BMI 28.0
[2023-03-30] MEDS: Lactated Ringers 1,000 ML 15 ML IV (10:14)
[2023-03-30] MEDS: Doxycycline 100 MG CAPSULE PO (10:15)
[2023-03-30 10:20] LABS: Hemoglobin 14.6 g/dL (12.0-15.0); Mean Corpuscular Hgb 30.7 pg (27.0-32.0); Mean Corpuscular Volume 90.5 fL (81-99); Mean Platelet Vol. 9.3 fl (6.2-12.0); Platelet Count 267 K/mm3 (150-450); RBC Distribution Width CV 12.2 % (11.6-14.6); RBC Distribution Width SD 39.9 fl (35.1-43.9); Red Blood Count 4.75 M/mm3 (4.2-5.4); White Blood Count 8.9 K/mm3 (4.4-11.0)
--- NOTE | 2023-03-30 11:00 | POC_PTH ---
PATIENT: GLORIA CHAPIN LOC: [facility] – [place] U#:[id number] AGE/SX: 42/F ROOM: RE03/30/[address]: Dr. Kaylan Barker DO : 1980 BED: DIS: 03/30/2023 SPEC #: [id number] RECD: 03/30/23 12:07 STATUS: RIZWANA MULLINS #: [id number] ROSETTA: 03/30/23 11:[address]: Kaylan Barker DEPT: SURGICAL PATHOLOGY RECD BY: Cesia Hernandez ENTERED: 03/30/23 12:47 SP TYPE: PROD CONC OTHR DR: Dr. Hai Doran DO Tissues: Product of conception, NOS Procedures: Surgery Specimen Level IV HEADER OPERATION: Suction dilation and curettage, Anora testing PRE-OP DIAGNOSIS: Missed TISSUE SUBMITTED: Products of conception, Anora testing MICROSCOPIC DIAGNOSIS Endometrium, curettage: Chorionic villi, decidualized stroma and trophoblastic cells (products of conception). AM:dong 03/31/2023 MICROSCOPIC DESCRIPTION Slides are reviewed. GROSS DESCRIPTION Received without fixative is one container labeled with the patient's name and designated products of conception. The specimen consists of multiple irregular fragments of pink-red soft tissue that in aggregate measure 10.0 x 7.0 x 1.0 cm. No tissue is identified. Roll Tender tissue is submitted for Anora studies. Roll Tender tissue is also submitted in three cassettes. / SJ:dong 03/30/2023 TC:5 CPT: 26690 ADDENDUM ADDENDUM ADDENDUM ADDENDUM ADDENDUM ADDENDUM ADDENDUM ADDENDUM ADDENDUM 04/09/2023 09:04 ADDENDUM 04/09/2023 09:04 ADDENDUM 04/09/2023 09:04 ADDENDUM 04/09/2023 09:04 ADDENDUM 04/09/2023 09:04 ANORA MICROARRAY CHROMOSOME ANALYSIS WITH PARENTAL SUPPORT RESULT: Maternal cell contamination MICROARRAY RESULT: n/a CLINICAL INTERPRETATION: Maternal cell contamination (CUSTODIAL) was detected. Insufficient DNA detected for analysis. Please see complete report in e-chart or EMR
--- NOTE | 2023-03-30 11:03 | HP.PCM.OB_ITS ---
HPI - General HPI Narrative GLORIA CHAPIN, is a 42 y/o @ 11 weeks who presents to [facility] for a suction D&C due to a missed that was diagnosed yesterday in the office. The CRL was found to be measuring 3 weeks behind and there were no heart tones and no signs that her body was going to start passing tissue. Maternal Data Information ENZO Calculator Estimated Delivery Date Method Current WG Current Estimate 10/18/23 LMP (Certain) 11w 1d Other Estimates 10/23/23 Ultrasound #1 10w 3d PFSH [facility] Medical History Alcohol use Anxiety Depression Difficulty swallowing Ectopic Family history of spina bifida Non-smoker Vaginal delivery Wears glasses Home Medications Lactobacillus acidophilus 250 million cell capsule (Probiotic Acidophilus) 100 mmu cells PO DAILY 02/05/21 [History Last Taken 09/10/21 20:00 100 mmu] prenat.vits,aissatou,hgd-zcfi-rjedp 1 tab PO DAILY 02/05/21 [History Last Taken 09/10/21 20:00 1 tab] citalopram 20 mg tablet 20 mg PO DAILY anxiety #30 tabs 10/29/22 [Rx Last Taken Unknown] Allergy/AdvReac Type Severity Reaction Status Date / Time No Known Allergies Allergy Verified 03/30/23 10:13 Family History Father CAD (coronary artery disease) Myocardial infarction Mother Breast lump, Onset Age: 60 precancerous Uncle Spina bifida GREAT UNCLE Surgical History H/O unilateral salpingectomy [place] teeth extracted Social History adopted: No household members: spouse and children number of children: 1 current occupational status: unemployed current occupation: Homemaker pets and animals: No history of recent travel: Yes ([facility]02/14) out of state: Yes out of country: No sexually active: Yes Smoking Status: Never smoker alcohol intake: current details: social-not while substance use type: does not use well-balanced diet: daily or most days caffeine: Yes Type: coffee Number of servings: 1 eating out: rarely or never during the past year weight has: remained stable what type of physical activity do you participate in: walking frequency: 1-2 times per week duration: 15-30 minutes/day quinton/quaker: Protestant seatbelt use: always do you feel safe at home: Yes additional social history: Braden Aj Dispatcher History 3 Elective abortions 0 Hx Para 1 Spontaneous abortions 0 Hx # Term Pregnancies 1 Ectopic pregnancies 1 Hx # Pregnancies 0 Multiple births 0 # of living children 1 Past Pregnancies Del. Date Name GA/Weeks Outcome Route Bth Weight Infant Gen Labor Lgth Anesthesia Del Locatn Provider FOB Unknown 10/2020 right salpingectomy/Hernandez ectopic 09/12/21 [place] 38 live - full term WC JV Delivery Date: 09/12/21 Last Updated by: Surekha Lombardo JV VAVD SROM 38w Visit Details Expected Delivery Route/Plan Labor Preferences- CB/BF classes: [] labor support person: [] labor intervention preferences: [] pain management options preferred: [] cut cord/dad catch: [] : [] PP control planned: [] discussed possible routes of delivery and associated risks: [] special requests: [] Plans Covid status: [] Flu vaccine: [] Tdap vaccine: [] Rhogam: [] LARC form signed: [] Problem list reviewed and updated with the most current plan of care details and appropriate orders placed. Relevant counseling for the gestational age provided. Continue routine care and follow up unless otherwise noted in visit notes/problem list details OB Flowsheet Initial Weight: Not Recorded Date -?-?-?-?-?-?-?-?-?-?-?-?- EGA Weight BP Urine Prot -?-?-?-?-?-?-?-?-?-?-?-?- Glucose FHR FuHt Pres Dilation -?-?-?-?-?-?-?-?-?-?-?-?- Effaced St Visit Note 03/09/23 -?-?-?-?-?-?--?-?-?-?-?-?- 8w 1d 177 lb 2 oz 119/75 -?-?-?-?-?-?-?-?-?-?-?-?- 104 -?-?-?-?-?-?-?-?-?-?-?-?- JV- CRL measurin g 5 days off from LMP however pictures are somewhat suboptimal. rpt ultrasound in 2-3 weeks. declines nipt. 03/29/23 -?-?-?-?-?-?-?-?-?-?-?-?- 11w 0d 178 lb 2 oz 115/67 Nega tive -?-?-?-?-?-?-?-?--?-?-?-?- Negative -?-?-?-?-?-?-?-?-?-?-?-?- JV- no heart ton es on ultrasound. planning for suction d&C tomorrow if schedule open in OR. will call with instruction. ROS Constitutional Constitutional: Denies change in weight, fatigue, fever(s), headache(s), poor appetite or weakness Eyes Eyes: Denies blurry vision, change in vision, seeing flashes or spots in vision ENT HEENT: Denies dizziness, headache(s), loss taste/smell or sore throat Cardiovascular Cardiovascular: Denies chest pain, dizziness, dyspnea, irregular heart rhythm, leg edema, palpitations, rapid heart rate or vomiting Respiratory/Chest Respiratory/Chest: Denies chest tightness, cough, dyspnea or breast pain Gastrointestinal Gastrointestinal: Denies abdominal pain, anorexia, constipation, cramping, diarrhea, hemorrhoids, vomiting or weight changes Genitourinary Genitourinary: Denies dysuria, flank pain, genital lesions, genital pain, urinary frequency or urinary urgency Musculoskeletal Musculoskeletal: Denies back pain, difficulty walking, joint pain, limited range of motion, muscle cramps or numbness Integumentary Integumentary: Denies lesions or unusual bruising Neurologic Neurologic: Denies abnormal movements, abnormal speech, dizziness, numbness, seizure-like activity or syncope Psychiatric Psychiatric: Denies anxiety, behavioral changes, change in appetite, change in libido, cognitive impairment, confusion, depression, difficulty concentrating, hallucinations or suicidal thoughts Endocrine Endocrinology: Denies excessive sweating, polydipsia or polyuria Hematologic/Lymphatic Hematologic/Lymphatic: Denies easy bleeding, easy bruising or lymphadenopathy Allergic/Immunologic Allergic/Immunologic: Denies itchy eyes, lip swelling, seasonal rhinorrhea, rhinitis, throat swelling, tongue swelling, eczemia, wheezing or asthma Vital Signs Vital Signs Vital Signs: 03/30/23 10:15 03/30/23 10:15 Temperature 98.1 F Temperature Source Temporal Pulse Rate 75 Respiratory Rate 16 Respiratory Pattern Normal Blood Pressure 121/67 H Blood Pressure Mean 85 Blood Pressure Source Monitor Blood Pressure Position Semi-Fowlers Blood Pressure Location Right Arm Pulse Ox 100 Oxygen Delivery Method Room Air Weight Weight: 174 lb 2.643 oz Body Mass Index (BMI) 28.0 Physical Exam Const alert, oriented x3, no apparent distress and healthy appearing General Appearance: cooperative; Negative for anxious HEENT normocephalic Face and Sinus: normal facial exam Eyes EOMs intact bilaterally and no scleral icterus General Eye: normal appearance of both eyes Neck full ROM and supple Lymph Lymphatic: no lymphadenopathy noted Chest Chest: abnormal inspection of the chest Resp normal respiratory effort Effort and Inspection: able to speak in complete sentences Cardio regular rate GI soft to palpation and non-tender Inspection: gravid Palpation: soft; Negative for tender Back/Spine no CVA tenderness Extremity normal to inspection, full ROM and no clubbing, cyanosis or edema General Extremity: Negative for calf tenderness or edema Skin Lesions: no lesions Rashes: no rashes Psych mental status grossly normal Labs Labs Labs: Blood Type A POSITIVE Antibody Screen NEGATIVE Hct 43.0 % (37-47) Hgb 14.6 g/dL (12.0-15.0) Obstetrics US Syphilis Total Ab Non-reactive Rubella IgG Antibody Reactive (Nonreactive) Hep Bs Antigen Non-Reactive (Nonreactive) Chlamydia DNA (FAVIAN) Negative (Negative) Neisseria gonorrhoeae DNA (FAVIAN) Negative (Negative) HIV 1&2 Antibody Non-Reactive (Nonreactive) Glucose 1 Hr 50 gm 120 mg/dL (70-140) Assessment & Plan (1) Missed : PLAN: plan for suction dilation and curettage pt wishes to send POC off for ANORA testing. After discussing the patient's diagnosis and treatment plan options, patient wishes to proceed with surgical management. I have discussed with the patient the risks, benefits, and alternatives of the procedure which include but are not limited to risks of anesthesia, bleeding, infection, possible damage to bowel, bladder, or surrounding vasculature which could lead to additional surgery to evaluate any complications. Patient agrees to procedure and wishes to proceed. ACOG/uptodate references given for additional information regarding procedure.
--- NOTE | 2023-03-30 11:06 | DCINST_ITS ---
Discharge Instructions Diet Discharge Diet: No restrictions Activity Discharge Activity: Return to Normal Activity, May Shower and May Take a Tub Bath (after 1 week) May resume sexual activity in: 1-2 weeks Weight Bearing Status: Weight bearing as tolerated Lifting Restrictions: none Dressing / Incision Call your doctor if you observe: Fever of 101 or Higher, Using more than 1 pad per hour, Shortness of breath and Uncontrolled pain Follow Up Care Please Follow Up With: Kaylan Barker DO When: Call [phone] to schedule appointment. Test Results: Test results from this visit will be discussed in further detail at your follow- up appointment, if applicable. Discharge Plan Admission Primary Reason for Your Visit: suction dilation and curettage Attending Provider: Kaylan Barker Primary Care Provider: Hai Doran Discharge Orders/Prescriptions Prescriptions: New oxycodone-acetaminophen [Percocet] 5-325 mg tablet 1 tab PO Q4H PRN (Reason: pain) 7 Days Qty: 10 0RF Rx Instructions: 1-2 tabs q 4 hrs as needed for pain naproxen 500 mg tablet 500 mg PO BID PRN (Reason: pain) Qty: 20 0RF Continued prenat.vits,aissatou,fsx-pxay-kbzpx Tablet 1 tab PO DAILY Probiotic Acidophilus 1.5 mg (250 million cell) capsule 100 mmu cells PO DAILY citalopram 20 mg tablet 20 mg PO DAILY Qty: 30 12RF Referrals / Follow Up: Hai Doran DO [Primary Care Provider] - Disposition Disposition (needs filled in before D/C Order can be placed): Home, Self Care
[2023-03-30] MEDS: Lidocaine 1% (20 ml mdv) 20 ML Vial (11:43)
--- NOTE | 2023-03-30 12:15 | OP.PCM_ITS ---
Problems Associated Problem List Diagnoses (1) Missed : Report of Operation Date of Procedure: 03/30/23 Pre-Operative Diagnosis: 42 y/o @ 11 weeks gestation, missed Post-Operative Diagnosis: 42 y/o @ 11 weeks gestation, missed Surgery/Procedure Performed:: suction dilation and curettage Description of Surgical Findings:: 11 cm uterus, normal vagina and multiparous, dilated cervix. Surgeon: Kaylan Barker mental health assistant: None Type of Anesthesia: MAC/Supplemental/Local Estimated Blood Loss (mL): 100cc Description of Procedure: Patient was taken to the operating room and placed under MAC local anesthesia. She was prepped and draped in the normal sterile fashion the dorsal lithotomy position. Bladder was drained of clear urine and anterior lip of the cervix was grasped and the uterus sounded to 11 cm. The was progressively dilated to allow passage of a 9mm suction curette. Progressive passes were made removing the retained products of conception without complication. Sharp curettage conf irmed complete removal of the retained products. All instruments were removed from the vagina and excellent hemostasis was noted and the patient was taken to recovery in stable condition. Complications none Admit VTE Documentation VTE Present on Admission: No VTE Mechan Device Prophylaxis: SCD's VTE Pharm Prophylaxis ordered?: No Multi Select Codes Urinary/Genital Urinary/Genital CPT Codes: 26389 Surg Trtmt missed Ab 1TM
[2023-03-31 04:05] LABS: Pathology Specimen OB SEE PATHOLOGY REPORT
== END 2023-03-30 13:30 | disposition home or self-care (01) ==
LOC: SDC 09:08 → AC 09:11
PROVIDERS: PCP Family Medicine; Referring Provider Obstetrics & Gynecology; Visit Provider Obstetrics & Gynecology
PROC: (CPT 59820; principal; 2023-03-30 10:45)
DX: O02.1 Missed abortion (principal); O99.341 Other mental disorders complicating pregnancy, first trimester; F41.9 Anxiety disorder, unspecified; F32.A Depression, unspecified; Z79.899 Other long term (current) drug therapy
CPT/HCPCS: 59820; 01965; 85027; 86850; 86900; 86901; 88305; J7120; J2405

== ENCOUNTER → 2023-07-14 | Outpatient (CLI) | payer SELFPAY ==
--- OUTSIDE RECORDS SUMMARY | 2023-07-14 18:50 | XMS RPT_ITS | CCD ---
Author Name Unknown Address [address] [place] [address] [id number] [place] [address] Organization [facility] Care Team Providers Care Medical Coding Instructor Name Role Phone RICHARD , DR FRED Liang Primary Care Physician [phone] RICHARD , DR FRED Liang Attending Unavailabl e RICHARD DO, DR FRED Liang Primary Care Unavailabl e RICHARD DO, DR FRED Liang Attending Unavailabl e RICHARD DO, DR FRED Liang Primary Care Unavailabl e RICHARD DO, DR FRED Liang Attending Unavailabl e RICHARD DO, DR FRED Liang Primary Care Unavailabl e Medications Current Medications Medication Drug Class(es) Dates Sig (Normalized) Sig (Original) citalopram 20 mg oral tablet (2 sources) Serotonin Reuptake Inhibitor Start: 10-30-2022 citalopram 20 mg oral tablet Dose : 20 mg = 1 tab(s), Oral, qDay, # 90 tab(s), 3 Refill(s), Pharmacy: [facility], Depression, major, recurrent, in partial remission, 168, cm, 10/30/22 11:26:00 EDT, Height, kg, 10/30/22 11:26:00 EDT, Dosing Weight Start Date: 10/30/22 Status: Ordered Problems Problem Classification Problem Date Documented Da te Episodic/Chronic Ectopic (2 sources) Tubal 11-07-2020 Episodic Fluid and electrolyte disorders (1 source) Hypo-osmolality and or hyponatremia; Translations: [Hypo-osmolality and hyponatremia] Episodic Mood disorders (2 sources) Recurrent major depression in partial remission 11-01-2020 Chronic Other aftercare (2 sources) Surgical follow-up 11-07-2020 Episodic Other and delivery including normal (2 sources) 11-01-2020 Episodic Results Test Name Value Interpretation Reference Range Facil ity Encounters Encounter Date Encounter Type Care Provider Facility Start: 04-21-2023 End: 04-26-[address] FRED RAMOS DO Facility:B Start: 04-21-2023 End: 04-25-[address] FRED RAMOS DO [facility] Start: 05-20-2022 End: 05-21-[address] FRED RAMOS DO Facility:[facility] Start: 05-20-2022 End: 05-20-[address] FRED RAMOS DO [facility] Start: 04-29-2022 End: 05-04-[address] FRED RAMOS DO Facility:B Start: 04-29-2022 End: 05-04-2022 Encounter for general adult medical examination without abnormal findings DR FRED RAMOS DO Facility:B Procedures Date Procedure Procedure Detail Performing Clinician Structure of wisdom tooth (body structure) DR FRED RAMOS DO Payers Date Payer Category Payer Self-pay 2022 Unknown [id number] 2022 Unknown [id number] 1980 Unknown [id number] 1982 Unknown [id number] 1982 Unknown [id number] Social History Date Type Detail Facility Start: 11-01-2020 Tobacco smoking status Never s moked tobacco (finding) [facility] Sex Assigned At Female [facility] Progress note 10-25-2020 Note Date & Type Note Facility 10-25-2020 Note HNO ID: [id number] Author: Donna Keith Service: ? Author Type: Physician Type: Progress Notes Filed: 10/25/2020 4:43 PM Note Text: Janice Chapin is a 40 year old female who presents for problem visit - ER follow up. HPI: LMP 08/17/2020. Menstrual cycles are irregular. Cycle length varies between 40-46 days. Went to [facility] for bleeding 2 days ago. She says she was having cramping and spotting. Had CBC done at that time. Rh positive. HCG quant 247 on 10/23/20. She had a pelvic US on 10/23/20 that showed no intra uterine or extra uterine . Thickened endometrium noted at 3.4 cm. Two possible small fibroids noted. The cramping has resolved. Occasional spotting. Bright red with wiping. No other complaints today. PAST MEDICAL HISTORY Diagnosis Date - Depression with anxiety PAST SURGICAL HISTORY Procedure Laterality Date - PAST SURGICAL HISTORY OF wisdom teeth FAMILY HISTORY Problem Relation Age of Onset - other (pre-cancerous breast lump) Mother - Heart Attack Father - No Known Problems Sister - No Known Problems Brother - No Known Problems Brother - Colon Cancer Maternal Grandmother - No Known Problems Maternal Grandfather - No Known Problems Paternal Grandmother - No Known Problems Paternal Grandfather - other (esophageal cancer) Maternal Uncle Social History Tobacco Use - Smoking status: Never Smoker - Smokeless tobacco: Never Used Vaping Use - Vaping Use: Never used Substance Use Topics - Alcohol use: Not Currently Comment: Occassionally - Drug use: No Current Outpatient Medications Medication Sig - folic acid 0.8 mg cap Take by mouth. - Ocmqmwmw-Ec-Nla-Fe-FA ( VITAMIN) tab Take 1 tablet by mouth. - citalopram 20 mg ORAL tablet Take 20 mg by mouth once daily. - Cetirizine (ZYRTEC) 10 mg cap Take by mouth as needed. (Patient not taking: Reported on 10/24/2020 ) No current facility-administered medications for this visit. Allergies As of Date: 10/25/2020 Allergen Noted Reaction CAT DANDER 10/24/2020 Itching and Shortness of Breath MOLD 10/24/2020 Other: See Comments Fully Assessed 10/25/2020 REVIEW OF SYSTEMS Abdomen: No abdominal pain. Expanded ROS: See HPI. Allergies and current medication updated:Yes EXAM: BP 110/78 Ht 5' 5.75 (1.67m) Wt 181 lb 6.4 oz (82.3kg) LMP 08/17/2020 BMI 29.50 kg/(m2). GENERAL: pleasant, female in no apparent distress HEENT: Normocephalic, atraumatic, mucus membranes moist and no lesions NECK: full range of motion DERMATOLOGY: Normal, without lesions, non-icteric and non-hirsute CHEST: Normal inspiratory effort NEURO: exam grossly non-focal EXTREMITIES: normal ASSESSMENT AND PLAN: Encounter Diagnosis ICD-10-CM 1. Spotting complicating , first trimester O26.851 2. Early stage of Z34.90 3. Encounter for care in first trimester of first Z34.01 SYPHILIS TOTAL W/REFLEX RUBELLA IGG AB HEP B SURF AG SCRN HEP C AB IA W/CONF SCRN HIV 1 2 COMBO(AG/AB),WITH REFLEX TO DIFFERENTIATION TYPE + SCREEN URINE CULTURE TOX SCREEN ROUT UR Reviewed HCG quants and pelvic US with patient and questions answered. Discussed possible miscarriage vs ectopic vs viable IUP. Concern for miscarriage. Reviewed miscarriage and ectopic precautions and when to call. Recommend repeat HCG quant tomorrow. Discussed may need serial HCG quants q 48-72 hrs and then possible repeat pelvic US pending results. Will call with results. Donna Keith DO Medical Decision Making: Problems: Moderate: New problem with uncertain prognosis Risk: Low: Low risk from testing/treatment Medical Decision Making Level: 3 - [facility] Evaluation + Plan note Note Date & Type Note Facility Evaluation + Plan note Future Appointments Appointment Date:10/30/2022 11:20:00 AM Scheduled Provider:FRED RAMOS DO Location:[facility] Appointment Type:[facility] Evaluation + Plan note Note Date & Type Note Facility Evaluation + Plan note Future Appointments Appointment Date:04/29/2023 11:00:00 AM Scheduled Provider:FRED RAMOS DO Location:[facility] Appointment Type:PC Wellness [facility] Hospital course Narrative Note Date & Type Note Facility Hospital course Narrative No data available for this section [facility] Hospital Discharge instructions Note Date & Type Note Facility Hospital Discharge instructions No data available for this section [facility] Progress note Note Date & Type Note Facility Progress note No data available for this section [facility] Summary Purpose Family History No Family History Records Found No data available for this section No Family History Records Found Advance Directives No Advanced Directives Records FoundNo Advanced Directives Records Found Additional Source Comments INFORMATION SOURCE (unrecogn ized section and content) DATE CREATED AUTHOR AUTHOR'S ORGANIZ ATION 04/26/2023 [facility] ([place]) Care Team (unrecognized sect ion and content) Care Team Personnel Name: FRED RAMOS DO Position: P4 Physician - Primary Care Member Role: Primary Care Physician Address: Address: [place] [address] Care Team Related Persons Name: BIN CHAPIN Patient Care team informatio n (unrecognized section and content) Care Team Personnel Name: FRED ARMOS DO Position: P4 Physician - Primary Care Member Role: Primary Care Physician Address: Address: [place] [address] Care Team Related Persons Name: BIN CHAPIN FOR RECORDS PERTAINING TO PATIENTS WHO ARE OR HAVE BEEN ENROLLED IN A CHEMICAL DEPENDENCY/SUBSTANCEABUSE PROGRAM, SOME INFORMATION MAY BE OMITTED. This clinical summary was aggregated from multiple sources. Caution should be exercised in using it in the provision of clinical care. This summary normalizes information from multiple sources, and as a consequence, information in this document may materially change the coding, format and clinical context of patient data. In addition, data may be omitted in some cases. CLINICAL DECISIONS SHOULD BE BASED ON THE PRIMARY CLINICAL RECORDS. [facility] [employer] [facility]. provides no warranty or guarantee of the accuracy or completeness of information in this document.
[2023-07-16 22:10] LABS: Chlamydia By Nucleic Acid AMP Negative (Negative); Gonococcus By Nucleic Acid AMP Negative (Negative)
== END | disposition home or self-care (01) ==
PROVIDERS: PCP Family Medicine; Visit Provider Registered Nurse
DX: Z34.90 Encounter for supervision of normal pregnancy, unspecified, unspecified trimester (principal)
CPT/HCPCS: 87086; 87088; 87491; 87591

== ENCOUNTER → 2023-09-20 | Outpatient (CLI) | payer SELFPAY ==
[2023-09-20 15:13] LABS: Absolute Lymphocyte Count 1.82 X10^3/uL (0.83-4.51); Absolute Neutrophil Count 6.2 X10^3/uL (2.0-7.7); Basophil# 0.04 X10^3/uL; Basophil% 0.4 % (0-1); Eosinophil# 0.64 X10^3/uL; Eosinophils% 6.7 % (0-5); Hematocrit 38.7 % (37-47); Hemoglobin 13.4 g/dL (12.0-15.0); Lymphocyte # 1.82 X10^3/ul (0.83-4.51); Lymphocyte % 19.1 % (19-41); Mean Corp Hgb Conc 34.6 g/dL (32-36); Mean Corpuscular Hgb 30.8 pg (27.0-32.0); Mean Platelet Vol. 9.1 fl (6.2-12.0); Monocyte# 0.77 X10^3/uL; Monocyte% 8.1 % (0-10); NRBC Flagged by Analyzer 0 % (0-5); Neutrophil # 6.21 X10^3/uL (2.7-7.7); Neutrophil % 65.4 % (47-70); Platelet Count 260 K/mm3 (150-450); RBC Distribution Width CV 12.5 % (11.6-14.6); Red Blood Count 4.35 M/mm3 (4.2-5.4); White Blood Count 9.5 K/mm3 (4.4-11.0)
--- NOTE | 2023-09-20 15:22 | US_ITS ---
INDICATION: EXAMINATION: Ultrasound US OB Greater Than 14 Weeks TECHNIQUE: Transabdominal and transvaginal pelvic ultrasound was performed. Ríos scale and color Doppler technique with M-mode imaging. COMPARISON: No relevant prior comparison study available LMP: Unknown. Provided EGA: 19 weeks, 2 days FINDINGS: INTRAUTERINE GESTATION(s): Single. ESTIMATED GESTATIONAL AGE: BIOMETRIC MEASUREMENTS: * BIPARIETAL DIAMETER: 4.3 cm which corresponds to 19 weeks, 1 day. * HEAD CIRCUMFERENCE: 16.1 cm which corresponds to 18 weeks 6 days. * ABDOMINAL CIRCUMFERENCE: 13.5 cm which corresponds to 19 weeks 0 days. * FEMORAL LENGTH: 2.9 cm which corresponds to 18 weeks 6 days. ESTIMATED DUE DATE (ENZO): 19 weeks, 0 days HEART MOTION is 138 bpm. AMNIOTIC FLUID: Normal. Maximal vertical pocket 4.4 cm. ESTIMATED WEIGHT: 266 Percentile 27%. BIOPHYSICAL PROFILE (BPP): Not assessed. PRESENTATION: Cephalic ANATOMY: * CRANIUM: Lateral ventricles, choroid plexus, cerebellum, cisterna magna and facial structures are well visualized and normal. * CHEST: Normal four-chamber view of the heart. * ABDOMEN / PELVIS: The diaphragm, stomach, abdominal wall, cord insertion, three-vessel cord, kidneys and bladder are well visualized and normal. * SPINE: The cervical, thoracic, lumbar and sacral spine are well visualized and normal. * EXTREMITIES: The upper and lower extremities are well visualized and normal. PLACENTA: Anterior / Fundal. There is no placenta previa or abruption. CERVIX: The cervix is closed, measuring 5.1 cm. IMPRESSION: * Single live intrauterine of 19 weeks, 0 days . * Normal anatomy. * No acute abnormality. Electronically Signed: Soren Leos MD at 3:22 EDT , INDICATION: EXAMINATION: Ultrasound US OB Greater Than 14 Weeks TECHNIQUE: Transabdominal and transvaginal pelvic ultrasound was performed. Ríos scale and color Doppler technique with M-mode imaging. COMPARISON: No relevant prior comparison study available LMP: Unknown. Provided EGA: 19 weeks, 2 days FINDINGS: INTRAUTERINE GESTATION(s): Single. ESTIMATED GESTATIONAL AGE: BIOMETRIC MEASUREMENTS: * BIPARIETAL DIAMETER: 4.3 cm which corresponds to 19 weeks, 1 day. * HEAD CIRCUMFERENCE: 16.1 cm which corresponds to 18 weeks 6 days. * ABDOMINAL CIRCUMFERENCE: 13.5 cm which corresponds to 19 weeks 0 days. * FEMORAL LENGTH: 2.9 cm which corresponds to 18 weeks 6 days. ESTIMATED DUE DATE (ENZO): 19 weeks, 0 days HEART MOTION is 138 bpm. AMNIOTIC FLUID: Normal. Maximal vertical pocket 4.4 cm. ESTIMATED WEIGHT: 266 Percentile 27%. BIOPHYSICAL PROFILE (BPP): Not assessed. PRESENTATION: Cephalic ANATOMY: * CRANIUM: Lateral ventricles, choroid plexus, cerebellum, cisterna magna and facial structures are well visualized and normal. * CHEST: Normal four-chamber view of the heart. * ABDOMEN / PELVIS: The diaphragm, stomach, abdominal wall, cord insertion, three-vessel cord, kidneys and bladder are well visualized and normal. * SPINE: The cervical, thoracic, lumbar and sacral spine are well visualized and normal. * EXTREMITIES: The upper and lower extremities are well visualized and normal. PLACENTA: Anterior / Fundal. There is no placenta previa or abruption. CERVIX: The cervix is closed, measuring 5.1 cm. US/OB Anatomy w/ Transvaginal
[2023-09-20 17:20] LABS: HIV - WCH Non-Reactive (Nonreactive); Hepatitis B Surface Antigen Non-Reactive (Nonreactive); Hepatitis C Antibody Non-Reactive (Nonreactive); Rubella IgG Reactive (Nonreactive); Syphilis Antibodies Non-reactive
== END | disposition home or self-care (01) ==
LOC: US 15:18
PROVIDERS: PCP Family Medicine; Referring Provider Registered Nurse; Visit Provider Registered Nurse
DX: Z34.90 Encounter for supervision of normal pregnancy, unspecified, unspecified trimester (principal)
CPT/HCPCS: 36415; 76805; 76817; 85025; 86703; 86762; 86780; 86803; 86850; 86900; 86901; 87340

== ENCOUNTER → 2023-11-16 | Outpatient (CLI) | payer SELFPAY ==
[2023-11-16 08:17] LABS: Absolute Lymphocyte Count 1.15 X10^3/uL (0.83-4.51); Basophil# 0.06 X10^3/uL; Basophil% 0.7 % (0-1); Eosinophil# 0.55 X10^3/uL; Eosinophils% 6.4 % (0-5); Hematocrit 36.3 % (37-47); Hemoglobin 12.4 g/dL (12.0-15.0); Lymphocyte # 1.15 X10^3/ul (0.83-4.51); Lymphocyte % 13.4 % (19-41); Mean Corp Hgb Conc 34.2 g/dL (32-36); Mean Corpuscular Hgb 30.5 pg (27.0-32.0); Mean Corpuscular Volume 89.4 fL (81-99); Mean Platelet Vol. 9.1 fl (6.2-12.0); Monocyte# 0.72 X10^3/uL; Monocyte% 8.4 % (0-10); NRBC Flagged by Analyzer 0 % (0-5); Neutrophil # 6.04 X10^3/uL (2.7-7.7); Neutrophil % 70.5 % (47-70); Platelet Count 246 K/mm3 (150-450); RBC Distribution Width CV 12.8 % (11.6-14.6); RBC Distribution Width SD 41.6 fl (35.1-43.9); Red Blood Count 4.06 M/mm3 (4.2-5.4); White Blood Count 8.6 K/mm3 (4.4-11.0)
[2023-11-16 08:25] LABS: Glucose Challenge Gest 1H 50g 128 mg/dL (70-140)
[2023-11-16 09:45] LABS: HIV - WCH Non-Reactive (Nonreactive); Syphilis Antibodies Non-reactive
== END | disposition home or self-care (01) ==
PROVIDERS: PCP Family Medicine; Referring Provider Advanced Practice Midwife; Visit Provider Advanced Practice Midwife
DX: O09.90 Supervision of high risk pregnancy, unspecified, unspecified trimester (principal); Z13.1 Encounter for screening for diabetes mellitus; Z3A.00 Weeks of gestation of pregnancy not specified
CPT/HCPCS: 36415; 82950; 85025; 86703; 86780

== ENCOUNTER → 2023-11-25 | Outpatient (CLI) | payer SELFPAY ==
--- NOTE | 2023-11-25 13:27 | US_ITS ---
STUDY: SECOND AND THIRD TRIMESTER OBSTETRICAL ULTRASOUND - LIMITED REASON FOR EXAM: Female, 43 years old AMA LMP: 05/08/2023 PRIOR ULTRASOUND: None. TECHNIQUE: Transabdominal TECHNICAL QUALITY: Adequate. FINDINGS: There is a single intrauterine fetus. The fetus is in a breech presentation. There is demonstrated cardiac activity with a heart rate of 147 bpm. There is a normal amniotic fluid volume. The largest amniotic fluid pocket measures 5.9 cm. The amniotic fluid index (MARGE) is 16.4 cm. The placenta is fundal in location. There are Grade 1 placental changes. The cervix is not adequately seen. BIOMETRY: BPD: 7.4: 29 weeks, 5 days HC: 26.6: 28 weeks, 6 days AC: 23.7: 28 weeks, 0 days FL: 5.5: 29 weeks, 1 days Age by LMP: 28 weeks, 5 days. ENZO by LMP: 02/12/2024. age by prior US: weeks, days. ENZO by prior US: . age by current US: 28 weeks, 5 days. ENZO by current US: 02/12/2024. Estimated weight: 1269 grams, +/- 190 grams, 36 percentile. Gender: US/OB Limited With Biometrics IMPRESSION: Single live fetus in a breech presentation. Placenta is grade 1 and is not low-lying. age by current US: 28 weeks, 5 days. ENZO by current US: 02/12/2024. Estimated weight: 1269 grams, +/- 190 grams, 36 percentile. Electronically Signed: Trino Santana MD at 16:22 EDT ,
== END | disposition home or self-care (01) ==
LOC: US 13:25
PROVIDERS: PCP Family Medicine; Referring Provider Obstetrics & Gynecology; Visit Provider Obstetrics & Gynecology
DX: O09.529 Supervision of elderly multigravida, unspecified trimester (principal); Z3A.00 Weeks of gestation of pregnancy not specified
CPT/HCPCS: 76816

== ENCOUNTER → 2023-12-24 | Outpatient (CLI) | payer SELFPAY ==
--- NOTE | 2023-12-24 09:06 | US_ITS ---
EXAM: US , LIMITED CLINICAL INDICATION: ama . TECHNIQUE: Real-time limited ultrasound of the maternal uterus with image documentation. COMPARISON: 11/25/2023 FINDINGS: FETUS: Estimated age: 32 weeks, 3 days. ENZO: ENZO by size: 02/15/2024. EFW: Estimated weight: 1990 g (30.7%). BPD: 8.1 cm. HC: 29.6 cm. AC: 28.3 cm. FL: 6.3 cm. POSITION: Cephalic presentation. HEART RATE: heart rate: 133 bpm. PLACENTA: Fundal placenta. AMNIOTIC FLUID: Amniotic fluid volume is 11.5 cm with largest fluid pocket of 4.1 cm. ADNEXA: The right ovary is not visualized. The left ovary is not visualized. US/OB Limited With Biometrics IMPRESSION: No acute findings. Interval growth. Viable IUP. Electronically Signed: Refugio Garber DO at 17:00 EDT ,
== END | disposition home or self-care (01) ==
LOC: US 09:03
PROVIDERS: PCP Family Medicine; Referring Provider Obstetrics & Gynecology; Visit Provider Obstetrics & Gynecology
DX: O09.529 Supervision of elderly multigravida, unspecified trimester (principal); Z3A.00 Weeks of gestation of pregnancy not specified
CPT/HCPCS: 76816

== ENCOUNTER → 2024-01-21 | Outpatient (CLI) | payer SELFPAY ==
[2024-01-21 10:34] LABS: Absolute Lymphocyte Count 1.45 X10^3/uL (0.83-4.51); Absolute Neutrophil Count 6.6 X10^3/uL (2.0-7.7); Basophil# 0.03 X10^3/uL; Basophil% 0.3 % (0-1); Eosinophil# 0.51 X10^3/uL; Eosinophils% 5.3 % (0-5); Hematocrit 37.3 % (37-47); Hemoglobin 12.6 g/dL (12.0-15.0); Lymphocyte # 1.45 X10^3/ul (0.83-4.51); Lymphocyte % 15.1 % (19-41); Mean Corp Hgb Conc 33.8 g/dL (32-36); Mean Corpuscular Hgb 30.4 pg (27.0-32.0); Mean Corpuscular Volume 89.9 fL (81-99); Monocyte# 0.98 X10^3/uL; Monocyte% 10.2 % (0-10); NRBC Flagged by Analyzer 0 % (0-5); Neutrophil # 6.62 X10^3/uL (2.7-7.7); Neutrophil % 68.7 % (47-70); Platelet Count 224 K/mm3 (150-450); RBC Distribution Width CV 12.7 % (11.6-14.6); RBC Distribution Width SD 41.2 fl (35.1-43.9); Red Blood Count 4.15 M/mm3 (4.2-5.4); White Blood Count 9.6 K/mm3 (4.4-11.0)
[2024-01-21 10:50] LABS: ALB/GLOB Ratio 0.7 RATIO (0.9-2.4); AST(SGOT) 14 U/L (15-37); Alanine Aminotransfer ALT/SGPT 17 U/L (13-56); Albumin, Serum 2.6 g/dL (3.2-5.0); Alkaline Phosphatase 106 U/L (45-117); Anion Gap 7 (5-15); BUN 10 mg/dL (7-18); Calcium,Total 8.8 mg/dL (8.5-10.1); Chloride 104 mmol/L (98-107); Creatinine, Serum 0.62 mg/dL (0.55-1.02); EST Glomerular Filtration Rate 112 mL/min (>60); Est Glom Filt Rate - Afr Amer 135 mL/min (>60); Globulin 3.9 g/dL (2.2-4.2); Glucose 80 mg/dL (74-106); Potassium 3.9 mmol/L (3.5-5.1); Protein, Total 6.5 g/dL (6.4-8.2); Sodium Level 135 mmol/L (136-145)
[2024-01-21 11:30] LABS: Protein, Urine (Random) 73.4 mg/dL (<11.9); Protein:Creat Ratio 282 mg/g CRE (0-200)
--- NOTE | 2024-01-21 11:31 | US_ITS ---
STUDY: SECOND AND THIRD TRIMESTER OBSTETRICAL ULTRASOUND - LIMITED REASON FOR EXAM: Female, 43 years old ama LMP: May 08, 2023. PRIOR ULTRASOUND: Comparison is made with prior study dated December 24, 2023. TECHNIQUE: Transabdominal TECHNICAL QUALITY: Adequate. FINDINGS: There is a single intrauterine fetus. The fetus is in a cephalic presentation. There is demonstrated cardiac activity with a heart rate of 125 bpm. There is a normal amniotic fluid volume. The largest amniotic fluid pocket measures 4.45 cm. The amniotic fluid index (MARGE) is 9.41 cm. The placenta is There are Grade 2 placental changes. BIOMETRY: BPD: 8.81 cm: 35 weeks, 4 days HC: 32.73 cm: 37 weeks, 1 days AC: 33.37 cm: 37 weeks, 2 days FL: 6.94 sinus: 35 weeks, 4 days Age by LMP: 36 weeks, 6 days. ENOZ by LMP: February 12, 2024. age by prior US: 36 weeks, 3 days. ENZO by prior US: February 15, 2024. age by current US: 36 weeks, 3 days. ENZO by current US: February 15, 2024. Estimated weight: 3000 grams, +/- 450 grams, 50 percentile. US/OB Limited With Biometrics IMPRESSION: Single live intrauterine gestation with a mean gestational age of 36 weeks and 3 days. Note is made of a loosely draped nuchal cord. Electronically Signed: Kvng Boothe MD at 14:23 EDT ,
== END | disposition home or self-care (01) ==
LOC: US 11:30
PROVIDERS: Registered Nurse; PCP Family Medicine; Referring Provider Obstetrics & Gynecology; Visit Provider Obstetrics & Gynecology
DX: O09.93 Supervision of high risk pregnancy, unspecified, third trimester (principal); Z3A.00 Weeks of gestation of pregnancy not specified; R80.9 Proteinuria, unspecified; O09.529 Supervision of elderly multigravida, unspecified trimester
CPT/HCPCS: 36415; 76816; 80053; 82570; 84156; 85025; 87077; 87081; 87186

== ENCOUNTER → 2024-01-31 | Outpatient (CLI) | payer SELFPAY ==
[2024-01-31 10:18] LABS: Absolute Lymphocyte Count 1.63 X10^3/uL (0.83-4.51); Basophil# 0.03 X10^3/uL; Basophil% 0.3 % (0-1); Eosinophil# 0.52 X10^3/uL; Hematocrit 37.2 % (37-47); Hemoglobin 12.6 g/dL (12.0-15.0); Lymphocyte # 1.63 X10^3/ul (0.83-4.51); Lymphocyte % 15.8 % (19-41); Mean Corp Hgb Conc 33.9 g/dL (32-36); Mean Corpuscular Hgb 30.4 pg (27.0-32.0); Mean Corpuscular Volume 89.9 fL (81-99); Mean Platelet Vol. 9.4 fl (6.2-12.0); Monocyte# 1.11 X10^3/uL; Monocyte% 10.8 % (0-10); NRBC Flagged by Analyzer 0 % (0-5); Neutrophil # 6.95 X10^3/uL (2.7-7.7); Neutrophil % 67.5 % (47-70); Platelet Count 216 K/mm3 (150-450); RBC Distribution Width CV 12.7 % (11.6-14.6); RBC Distribution Width SD 41.4 fl (35.1-43.9); Red Blood Count 4.14 M/mm3 (4.2-5.4); White Blood Count 10.3 K/mm3 (4.4-11.0)
[2024-01-31 10:25] LABS: Protein, Urine (Random) 76.3 mg/dL (<11.9); Protein:Creat Ratio 444 mg/g CRE (0-200)
[2024-01-31 10:33] LABS: ALB/GLOB Ratio 0.6 RATIO (0.9-2.4); AST(SGOT) 13 U/L (15-37); Alanine Aminotransfer ALT/SGPT 15 U/L (13-56); Albumin, Serum 2.4 g/dL (3.2-5.0); Alkaline Phosphatase 119 U/L (45-117); Anion Gap 2 (5-15); BUN 6 mg/dL (7-18); BUN/Creat Ratio 8.9 RATIO (10-20); Calcium,Total 8.7 mg/dL (8.5-10.1); Chloride 108 mmol/L (98-107); Creatinine, Serum 0.67 mg/dL (0.55-1.02); EST Glomerular Filtration Rate 103 mL/min (>60); Est Glom Filt Rate - Afr Amer 124 mL/min (>60); Glucose 96 mg/dL (74-106); Potassium 3.8 mmol/L (3.5-5.1); Protein, Total 6.4 g/dL (6.4-8.2); Sodium Level 136 mmol/L (136-145)
== END | disposition home or self-care (01) ==
LOC: PAVLAB 09:54 → LABSPEC 10:00
PROVIDERS: PCP Family Medicine; Referring Provider Nurse Practitioner Women's Health; Visit Provider Nurse Practitioner Women's Health
DX: O09.93 Supervision of high risk pregnancy, unspecified, third trimester (principal); Z3A.00 Weeks of gestation of pregnancy not specified
CPT/HCPCS: 36415; 80053; 82570; 84156; 85025

== ENCOUNTER 2024-02-05 12:13 | Inpatient (IN) | payer SELFPAY ==
[2024-02-05] VITALS (53 sets, daily range): BP systolic 105–154; BP diastolic 55–84; PULSE 84–109; RESP 16; TEMP 36.2–36.6; O2SAT 97–100; BMI 31.3
[2024-02-05] MEDS: Lactated Ringers 1,000 ML 50 ML IV (12:47)
[2024-02-05 13:00] LABS: Absolute Lymphocyte Count 1.39 X10^3/uL (0.83-4.51); Absolute Neutrophil Count 6.1 X10^3/uL (2.0-7.7); Basophil# 0.03 X10^3/uL; Basophil% 0.3 % (0-1); Eosinophil# 0.49 X10^3/uL; Eosinophils% 5.4 % (0-5); Hematocrit 36.3 % (37-47); Hemoglobin 12.4 g/dL (12.0-15.0); Lymphocyte # 1.39 X10^3/ul (0.83-4.51); Lymphocyte % 15.4 % (19-41); Mean Corp Hgb Conc 34.2 g/dL (32-36); Mean Corpuscular Hgb 30.5 pg (27.0-32.0); Mean Corpuscular Volume 89.4 fL (81-99); Mean Platelet Vol. 9.7 fl (6.2-12.0); Monocyte# 0.95 X10^3/uL; Monocyte% 10.6 % (0-10); NRBC Flagged by Analyzer 0 % (0-5); Neutrophil # 6.11 X10^3/uL (2.7-7.7); Platelet Count 210 K/mm3 (150-450); RBC Distribution Width CV 12.6 % (11.6-14.6); RBC Distribution Width SD 41.3 fl (35.1-43.9); Red Blood Count 4.06 M/mm3 (4.2-5.4)
[2024-02-05] MEDS: Oxytocin 15 Units/NS 250ml 15 UNITS/250 ML IV.SOLN 2 UNITS IV (13:00)
[2024-02-05] MEDS: Lactated Ringers 1,000 ML 999 ML IV (13:17)
[2024-02-05] MEDS: Penicillin G Pot 5,000,000 UNITS in 0.9% Normal Saline (100mL MB+) 100 ML 150 UNITS IV (13:36)
[2024-02-05 13:39] LABS: Syphilis Antibodies Non-reactive
--- NOTE | 2024-02-05 13:56 | HP.PCM.OB_ITS ---
HPI - General General Date of Admission: 02/05/24 Date of Service: 02/05/24 HPI Narrative GLORIA CHAPIN, is a 43 F 39.0 weeks gestation who presents to unit for IOL for AMA Maternal Data Information ENZO Calculator Estimated Delivery Date Method Current WG Current Estimate 02/12/24 LMP (Certain) 39w 0d Final ENZO: 02/12/24 Final ENZO Source: US >20 weeks Gestational age: 39.0 PFSH PFSH Medical History Wears glasses Depression Anxiety Alcohol use Difficulty swallowing Non-smoker GBS (group B streptococcus) UTI complicating Ectopic Supervision of high-risk Vaginal delivery Family history of spina bifida Home Medications ?Medication ?Instructions ?Recorded ?Last Taken ?Type prenat.vits,aissatou,ghx-djwe-vhbeb 1 tab PO DAILY 02/05/21 02/04/24 History citalopram 20 mg tablet 20 mg PO DAILY anxiety #30 tabs 10/29/22 02/04/24 Rx omega 3-fav-ywl-fish oil 900 1 cap PO DAILY Overall health 07/09/23 02/04/24 History mg-1,400 mg capsule,delayed release (Fish Oil) Allergy/AdvReac Type Severity Reaction Status Date / Time No Known Allergies Allergy Verified 02/03/24 11:14 Family History Father CAD (coronary artery disease) Myocardial infarction Mother Breast lump, Onset Age: 60 precancerous Uncle Spina bifida GREAT UNCLE Surgical History H/O dilation and curettage [place] teeth extracted H/O unilateral salpingectomy Social History adopted: No household members: spouse and children number of children: 1 current occupational status: unemployed current occupation: Homemaker current occupational exposures/hazards: No pets and animals: No history of recent travel: No ([facility]02/14) sexually active: Yes Smoking Status: Never smoker alcohol intake: current details: social-not while substance use type: does not use well-balanced diet: daily or most days caffeine: Yes Type: coffee Number of servings: 1 eating out: rarely or never during the past year weight has: remained stable what type of physical activity do you participate in: none quinton/denominational: Spiritism seatbelt use: always do you feel safe at home: Yes 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 Date Name GA/Weeks Outcome Route Bth Weight Infant Gen Labor Lgth Anesthesia Del Locatn Provider FOB Unknown 10/2020 right salpingectomy/Hernandez ectopic Unknown 03/29 miscarriage 8 spontaneous 09/12/21 Bermudez 38 live - full term 5#14oz Male epid ural [facility] JV Delivery Date: Last Updated by: Britni Duarte D&C Delivery Date: 09/12/21 Last Updated by: Surekha Lombardo JV VAVD SROM 38w Visit Details Expected Delivery Route/Plan Labor Preferences- CB/BF classes: [] labor support person: [] labor intervention preferences: [] pain management options preferred: [] cut cord/dad catch: [] : [] PP control planned: [] discussed possible routes of delivery and associated risks: [] special requests: [] Plans Covid status: [] Flu vaccine: [] Tdap vaccine: [] Rhogam: [] LARC form signed: [] Problem list reviewed and updated with the most current plan of care details and appropriate orders placed. Relevant counseling for the gestational age provided. Continue routine care and follow up unless otherwise noted in visit notes/problem list details OB Flowsheet Initial Weight: Not Recorded Date -?-?-?-?-?-?-?-?-?-?-?-?- EGA Weight BP Urine Prot -?-?-?-?-?-?-?-?-?-?-?-?- Glucose FHR FuHt Pres Dilation -?-?-?-?-?-?-?-?-?-?-?-?- Effaced St Visit Note 03/09/23 -?-?-?-?-?-?-?-?-?-?-?-?- 03/09/23 177 lb 2 oz 119/75 -?-?-?-?-?-?-?-?-?-?-?-?- 104 -?-?-?-?-?-?-?-?-?-?-?-?- JV- CRL measurin g 5 days off from LMP however pictures are somewhat suboptimal. rpt ultrasound in 2-3 weeks. declines nipt. 03/29/23 -?-?-?-?-?-?-?-?--?-?-?-?- 03/29/23 178 lb 2 oz 115/67 Neg ative -?-?-?-?-?-?-?-?-?-?-?-?- Negative -?-?-?-?-?-?-?-?-?-?-?-?- JV- no heart ton es on ultrasound. planning for suction d&C tomorrow if schedule open in [place]. will call with instruction. 07/14/23 -?-?-?-?-?-?-?-?-?-?-?-?- 9w 4d 185 lb 4 oz 125/81 -?-?-?-?-?-?--?-?-?-?-?-?- 157 -?-?-?-?-?-?-?-?-?-?-?-?- LC-CRL con with LMP. unsure about NIPT, is considering. 07/29/23 -?-?-?-?-?-?-?-?-?-?-?-?- 11w 5d 178 lb 8 oz 115/75 Trac e -?-?-?-?-?-?-?-?-?-?-?-?- Negative 146 -?-?-?-?-?-?-?-?-?-?-?-?- LC- no vb/cramp ing. does not desire nipt. will obtain nob labs soon. 08/23/23 -?-?-?-?-?-?-?-?-?-?-?-?- 15w 2d 182 lb 4 oz 121/79 Trac e -?-?-?-?-?-?-?-?-?-?-?-?- Negative 145 -?-?-?-?-?-?-?--?-?-?-?-?- KW- no vb/jose alejandro ng. US at next appt. 09/20/23 -?-?-?-?-?-?-?-?-?-?-?-?- 19w 2d 183 lb 2 oz 112/70 Nega tive -?-?-?-?-?-?-?-?-?-?-?-?- Negative 140 -?-?-?-?-?-?-?-?-?-?-?-?- LC- no vb/ctx. o cc flutters. anatomy scan today 10/25/23 -?-?-?-?-?-?-?-?-?-?-?-?- 24w 2d 187 lb 118/69 Trace -?-?-?-?-?-?-?-?-?-?-?-?- Negative 145 23 -?-?-?-?-?-?-?-?-?-?-?-?- KW- no vb/lof/cr amping. good fm. 28 week labs discussed. 11/16/23 -?-?-?-?-?-?-?-?-?-?-?-?- 27w 3d 189 lb 114/72 Negative -?-?-?-?-?-?-?-?-?-?-?-?- Negative 140 27 -?-?-?-?-?-?-?-?-?-?-?-?- Sm- no vb lof go od fm no regular ctx 12/09/23 -?-?-?-?-?-?-?-?-?-?-?-?- 30w 5d 187 lb 2 oz 109/72 Nega tive -?-?-?-?-?-?-?-?-?-?-?-?- Negative 140 31 -?-?-?-?-?-?-?-?-?-?-?-?- KW- no vb/lof/ct x. good fm. plan NSTs at 32 and IOL at 39 weeks for AMA 12/24/23 -?-?-?-?-?-?-?-?-?-?-?-?- 32w 6d 189 lb 106/69 Negative -?-?-?-?-?-?-?-?-?-?-?-?- Negative 133 32 -?-?-?-?-?-?-?-?-?-?-?-?- JV- patient had growth scan today and it was normal. no complaints. 01/03/24 -?-?-?-?-?-?-?-?-?-?-?-?- 34w 2d 190 lb 6 oz 117/76 Nega tive -?-?-?-?-?-?-?-?-?-?-?-?- Negative 130 125 34 -?-?-?-?-?-?-?-?-?-?-?-?- KW- no vb/lof/ct x. good fm. NST today. 01/10/24 -?-?-?-?-?-?-?-?-?-?-?-?- 35w 2d 192 lb 116/74 Negative -?-?-?-?-?-?-?-?-?-?-?-?- Negative 130 34 -?-?-?-?-?-?-?-?-?-?-?-?- MH-Reactive NST. NO VB,LOF. Good Fm. 01/21/24 -?-?-?-?-?-?-?-?-?-?-?-?- 36w 6d 191 lb 114/69 1+ -?-?-?-?--?-?-?-?-?-?-?-?- Negative 130 36 -?-?-?-?-?-?-?-?-?-?-?-?- LC- reactive nst . no ctx/vb/lof. good fm. gbs collected. LC- reactive nst. no ctx/vb/ lof. good fm. gbs collected. proteinuria- PEC labs obtained. has growth scan schedule this afternoon. 01/27/24 -?-?-?-?-?-?-?-?-?-?-?-?- 37w 5d 194 lb 129/77 Negative -?-?-?-?-?--?-?-?-?-?-?-?- Negative 130 -?-?-?-?-?-?-?-?-?-?-?-?- MH-Reactive NST. Denies con cerns. Rare BH. No VB, LOF. Good FM 01/31/24 -?-?-?-?-?-?-?-?-?-?-?-?- 38w 2d 193 lb 8 oz 123/75 1+ -?-?-?-?-?-?-?-?-?-?-?-?- Negative 140 -?-?-?-?-?-?-?-?-?-?-?-?- MH-NST only reac tive. Denies headache, vision changes. Pre E labs pending. 02/03/24 -?-?-?-?-?-?-?-?-?-?-?-?- 38w 5d 195 lb 120/80 Negative -?-?-?-?-?-?-?-?-?-?-?-?- Negative 140 38 Cephalic -?-?-?-?-?-?-?-?-?-?-?-?- SM- no vb lof go od fm no regular ctx SM- no vb lof good fm no reg ular ctx plan IOL NST FHR Rate Baby A Baseline: 130 Variability:: Moderate Accelerations:: 15 x 15 Decelerations:: None NST Reactive:: Yes FHR Category:: Category I Uterine Activity:: occasional ROS Constitutional Constitutional: Denies change in weight, fatigue, fever(s), headache(s), poor appetite or weakness Eyes Eyes: Denies blurry vision, change in vision, floaters, seeing flashes or spots in vision ENT HEENT: Denies dizziness, headache(s), loss taste/smell or sore throat Cardiovascular Cardiovascular: Denies chest pain, dizziness, dyspnea, irregular heart rhythm, lightheadedness, palpitations or rapid heart rate Respiratory/Chest Respiratory/Chest: Denies change in mental status, chest tightness, cough, dyspnea or breast pain Gastrointestinal Gastrointestinal: Denies anorexia, chewing difficulty, constipation, diarrhea or weight changes Genitourinary Genitourinary: Denies difficulty urinating, dysuria, flank pain, genital pain, urinary frequency or urinary urgency Musculoskeletal Musculoskeletal: Denies back pain, difficulty walking, extremity pain, joint pain, muscle cramps or muscle weakness Integumentary Integumentary: Denies lesions or unusual bruising Neurologic Neurologic: Denies abnormal movements, abnormal speech, dizziness, numbness, seizure-like activity, syncope or weakness Psychiatric Psychiatric: Denies behavioral changes, change in appetite, confusion, depression, homicidal ideation, suicidal ideation or suicidal thoughts Endocrine Endocrinology: Denies excessive sweating, polydipsia or polyuria Hematologic/Lymphatic Hematologic/Lymphatic: Denies anemia Allergic/Immunologic Allergic/Immunologic: Denies itchy eyes, lip swelling, throat swelling, tongue swelling or wheezing Vital Signs Vital Signs Vital Signs: 02/05/24 13:06 02/05/24 13:06 02/05/24 13:06 Temperature Temperature Source Pulse Rate 87 Respiratory Rate Blood Pressure 137/74 H BP Systolic 137 BP Diastolic 74 Pulse Ox 97 02/05/24 13:07 02/05/24 13:07 02/05/24 13:07 Temperature 97.8 F Temperature Source Temporal Pulse Rate Respiratory Rate 16 Blood Pressure BP Systolic BP Diastolic Pulse Ox Weight Weight: 194 lb 3.2 oz Body Mass Index (BMI) 31.3 Physical Exam Const alert, oriented x3 and no apparent distress General Appearance: cooperative Orientation / Consciousness: awake HEENT normocephalic Neck full ROM Lymph Lymphatic: no lymphadenopathy noted Chest inspection of chest normal Resp normal respiratory effort and normal air movement Effort and Inspection: able to speak in complete sentences and symmetric chest movement GI soft to palpation and non-tender Inspection: gravid Palpation: soft; Negative for tender external exam normal Manual OB Exam: dilated 4, effaced 80 and station -2 Back/Spine normal to inspection Extremity normal to inspection and full ROM Skin no rashes or lesions noted Psych mental status grossly normal Appearance: grossly normal Speech: normal speech Labs Labs Labs: Blood Type A POSITIVE Antibody Screen NEGATIVE Hct 36.3 % (37-47) L Hgb 12.4 g/dL (12.0-15.0) Obstetrics Ultrasound Syphilis Total Ab Non-reactive Rubella IgG Antibody Reactive (Nonreactive) Hep Bs Antigen Non-Reactive (Nonreactive) Hepatitis C Antibody Non-Reactive (Nonreactive) Chlamydia DNA (FAVIAN) Negative (Negative) N.gonorrhoeae DNA (FAVIAN) Negative (Negative) HIV 1&2 Antibody Non-Reactive (Nonreactive) Glucose 1 Hr 50 gm 128 mg/dL (70-140) Assessment & Plan (1) Encounter for induction of labor: (2) Positive GBS test: COMMENT: PCN in labor (3) Supervision of high-risk : QUALIFIERS: Trimester: third trimester Qualified Code(s): O09.93 - Supervision of high risk , unspecified, third trimester COMMENT: [id number], ENZO 02/12/24, PC Bermudez, Ariel (4) Advanced maternal age (AMA), 40 years or greater: COMMENT: recommended nipt. declines. NSTs wkly at 32 wk and del at 39 wk 32 and 36 wk US (5) : QUALIFIERS: Weeks of gestation: 38 weeks Qualified Code(s): Z3A.38 - 38 weeks gestation of COMMENT: discussed genetic & carrier testing, declines., nl anatomy (6) Anxiety and depression: COMMENT: celexa, counseling encouraged. stable Charges/Coding Multi Select Codes Urinary/Genital Urinary/Genital CPT Codes: No Charge
[2024-02-05] MEDS: fentaNYL-bupivacaine (epidural) 100 ML BAG EPIDURAL (15:10)
--- NOTE | 2024-02-05 15:18 | PN_ITS ---
Progress Note [Coping well with contractions] [comfortable with epidural] current tracing: FHT: 135 Moderate variability reactive variable decelerations category II tracing overall reassuring. Resolved with position change [place]: 4-6 Contractions Membranes: ruptured for clear fluid SVE:6/80/-2 A/P: Continue with position changes Titrate pitocin per protocol Epidural per anesthesia PCN for GBS prophylaxis Anticipate Dr Mcclelland aware of above assessment and agrees with plan of care Assessment & Plan Assessment/Plan (1) Encounter for induction of labor: (2) Positive GBS test: (3) Supervision of high-risk : QUALIFIERS: Trimester: third trimester Qualified Code(s): O09.93 - Supervision of high risk , unspecified, third trimester (4) Advanced maternal age (AMA), 40 years or greater: (5) : QUALIFIERS: Weeks of gestation: 38 weeks Qualified Code(s): Z3A.38 - 38 weeks gestation of (6) Anxiety and depression: Multi Select Codes Urinary/Genital Urinary/Genital CPT Codes: No Charge
[2024-02-05] MEDS: Oxytocin 15 Units/NS 250ml 15 UNITS/250 ML IV.SOLN 83 UNITS IV (18:39)
--- NOTE | 2024-02-05 18:41 | OP.PCM_ITS ---
Assessment & Plan (1) Retained placenta: (2) Vaginal delivery: COMMENT: KW IOL Girl (3) Encounter for induction of labor: (4) Positive GBS test: COMMENT: PCN in labor (5) Supervision of high-risk : QUALIFIERS: Trimester: third trimester Qualified Code(s): O09.93 - Supervision of high risk , unspecified, third trimester COMMENT: [id number], ENZO 02/12/24, PC Bermudez, Ariel (6) Advanced maternal age (AMA), 40 years or greater: COMMENT: recommended nipt. declines. NSTs wkly at 32 wk and del at 39 wk 32 and 36 wk US (7) : QUALIFIERS: Weeks of gestation: 38 weeks Qualified Code(s): Z3A.38 - 38 weeks gestation of COMMENT: discussed genetic & carrier testing, declines., nl anatomy (8) Anxiety and depression: COMMENT: celexa, counseling encouraged. stable Maternal Data Information ENZO Calculator Estimated Delivery Date Method Current WG Current Estimate 02/12/24 LMP (Certain) 39w 0d Final ENZO: 02/12/24 Final ENZO Source: US >20 weeks Gestational age: 39.0 Vaginal Delivery Maternal Presentation Maternal Presentation: Medically Indicated Induction Maternal Presentation: Progressed well to 10cm dilated and made steady progress with effective maternal pushing. Delivered the head in DEAN presentation. The head was delivered atraumatically and a loose nuchal cord was identified and infant delivered through. The anterior and posterior shoulders delivered without complication followed by the rest of the and the infant was placed on the maternal abdomen. Delayed cord clamping was employed for approximately 3 minutes. Cord was clamped and cut and gentle traction was applied to the cord. Dr Barker called to unit after 18 minutes that placenta had not delivered. See her note for management of retained placenta. Immediately following, it was noted to be intact with a 3 vessel cord. The perineum and vagina were inspected and noted to have a first degree laceration and periurethral which was repaired with 3-0 Vicryl in the usual fashion. EBL was 200cc. Patient and infant tolerated delivery well. Apgars 9/10. Dr Greenfield notified of vaginal delivery and orders reviewed. Physician agrees with current plan of care. Type of Induction: Pitocin Medical Reason for Induction: Maternal Medical Condition: list: (AMA) Operative Information Date of Procedure: 02/05/24 Pre-Operative Diagnosis: See AP comments Post-Operative Diagnosis: Same Surgery / Procedure Performed: Spontaneous Vaginal Delivery general cleaner #1: Jess Valdez Type of Anesthesia: Epidural Estimated Blood Loss: 200 Time of Delivery: 17:55 Findings Presentation: Vertex Amniotic Membrane Rupture Type: Artificial Amniotic Fluid Description: Clear Placental Delivery Description: Retained Placenta Disposition: [facility] Cord Vessel Description: 3 Vessels Cord Entanglement: Around neck x 1, loose Infant A Gender: Female (1 minute): 9 (5 minute): 10 Delayed Cord Clamping: Yes Post Vaginal Delivery Medications Given After Delivery: IV Pitocin Episiotomy Description: None Laceration: Periurethral Extnsion/lac and 1st degree Multi Select Codes Urinary/Genital Urinary/Genital CPT Codes: 84463 Vaginal Delivery [facility]
[2024-02-05] MEDS: Cefazolin 2 GM in 0.9% Normal Saline (100mL Bag) 100 ML IV (20:05)
[2024-02-06] VITALS (8 sets, daily range): BP systolic 115–136; BP diastolic 57–74; PULSE 78–92; RESP 15–16; TEMP 36.3–36.8; O2SAT 96–98
[2024-02-06] MEDS: Ibuprofen 600 MG Tablet PO ×3 (02:04→16:34)
--- NOTE | 2024-02-06 12:10 | PN.OBGYN_ITS ---
Subjective Subjective Patient doing well without complaints. Tolerating PO. Ambulating and voiding without difficulty. Feeding well. Denies chest pain, shortness of breath, calf pain/swelling, fevers, chills, lightheadedness. Objective Data Objective Data Vital Signs: Vital Signs Temp Pulse Resp BP Pulse Ox O2 Del Method 97.9 F 86 16 115/57 L 97 Room Air 02/06/24 09:40 02/06/24 09:40 02/06/24 09:40 02/06/24 09:40 02/06/24 09:40 02/06/24 09:40 Oxygen Delivery Method Room Air Weight: 194 lb 3.2 oz Body Mass Index (BMI) 31.3 Intake & Output: Intake and Output for Last 24 Hours 02/04/24 02/05/24 02/06/24 23:59 23:59 23:59 Intake Total 2790.27 / 2790.27 700 / 700 Output Total 550 / 550 2700 / 2700 Balance 2240.27 / 2240.27 -1999 / Lab / Micro Data Attestation: I reviewed the patient's lab results. 02/05/24 12:50 Labs: Laboratory Results - last 24 hr 02/05/24 12:50: WBC 9.0, RBC 4.06 L, Hgb 12.4, Hct 36.3 L, MCV 89.4, MCH 30.5, MCHC 34.2, RDW Std Deviation 41.3, RDW Coeff of Oma[place] 12.6, Plt Count 210, MPV 9.7, Immature Gran % (Auto) 0.300, Neut % (Auto) 68.0, Lymph % (Auto) 15.4 L, M jessica % (Auto) 10.6 H, Eos % (Auto) 5.4 H, Baso % (Auto) 0.3, Absolute Neuts (auto) 6.1, Absolute Lymphs (auto) 1.39, Nucleated RBC % 0, Syphilis Total Ab Non-reactive, Blood Type A POSITIVE, Antibody Screen NEGATIVE ROS Constitutional Constitutional: Reports systems reviewed and no addt'l complaints, except as documented; Denies anorexia or headache(s) Cardiovascular Cardiovascular: Reports systems reviewed and no addt'l complaints, except as documented; Denies dizziness, dyspnea, nausea or tachypnea Respiratory/Chest Respiratory/Chest: Reports systems reviewed and no addt'l complaints, except as documented; Denies cough, dyspnea, shortness of breath at rest or tachypnea Gastrointestinal Gastrointestinal: Reports systems reviewed and no addt'l complaints, except as documented; Denies abdominal pain, constipation or nausea Genitourinary Genitourinary: Reports systems reviewed and no addt'l complaints, except as documented; Denies burning urination, difficulty urinating, dysuria, urinary frequency or urinary incontinence Musculoskeletal Musculoskeletal: Reports systems reviewed and no addt'l complaints, except as documented Integumentary Integumentary: Reports systems reviewed and no addt'l complaints, except as documented Neurologic Neurologic: Reports systems reviewed and no addt'l complaints, except as documented; Denies abnormal speech, dizziness or headache(s) Psychiatric Psychiatric: Reports systems reviewed and no addt'l complaints, except as documented Endocrine Endocrinology: Reports systems reviewed and no addt'l complaints, except as documented Hematologic/Lymphatic Hematologic/Lymphatic: Reports systems reviewed and no addt'l complaints, except as documented Physical Exam Const alert, oriented x3 and no apparent distress Neck full ROM Resp normal respiratory effort, normal air movement and no retractions Effort and Inspection: able to speak in complete sentences and symmetric chest movement GI soft to palpation Bladder / Kidney Exam: bladder normal to palpation Uterus Palpation: uterus fundus Extremity normal to inspection and full ROM Psych mental status grossly normal, thought process normal and cooperative Assessment & Plan (1) Retained placenta: (2) Vaginal delivery: COMMENT: KW IOL Girl PLAN: s/p PPD # 1 1. routine post delivery care 2. breast feeding- support given 3. rh positive 4. rubella immune (3) Encounter for induction of labor: (4) Positive GBS test: COMMENT: PCN in labor (5) Supervision of high-risk : QUALIFIERS: Trimester: third trimester Qualified Code(s): O09.93 - Supervision of high risk , unspecified, third trimester COMMENT: [id number], ENZO 02/12/24, PC Bermudez, Ariel (6) Advanced maternal age (AMA), 40 years or greater: COMMENT: recommended nipt. declines. NSTs wkly at 32 wk and del at 39 wk 32 and 36 wk US (7) : QUALIFIERS: Weeks of gestation: 38 weeks Qualified Code(s): Z 3A.38 - 38 weeks gestation of COMMENT: discussed genetic & carrier testing, declines., nl anatomy (8) Anxiety and depression: COMMENT: celexa, counseling encouraged. stable Charges/Coding Multi Select Codes Urinary/Genital Urinary/Genital CPT Codes: No Charge
--- NOTE | 2024-02-06 12:50 | CASEMGMT ---
Social Work Assessment Labor and Delivery Unit Patient Address: [address] [place] [address] Phone number: Date of Referral: 02/05/2024 Time of Referral: 19:42 Referred By: Dr. Jess Valdez Date of Intervention: 02/06/24 Time of Intervention: 12:49? Reason for Referral: Anxiety History obtained from: medical records, mother of baby (MOB) Janice Montes and father of baby (FOB) Ariel Montes. Household composition:? MOB, FOB, 2 year old son Aidan and baby Magy. MOB and FOB have been together since 2016 and have been since 2018. Patient's parent/guardian status: MOB and FOB are and both will be actively involved in the care of the baby. Medical History: TAMICA has had 4 pregnancies, 2 deliveries, one spontaneous and 1 ectopic . Vaginal . ?Baby?s weight: 6lbs, 8oz.? Apgars: 9 and 10. MOB received care through [facility] beginning at 9weeks and 4 days. care was routine through the . ? Educational Status: No identified concerns with reading or writing. MOB earned a bachelor?s degree and FOB earned a high school diploma. Financial Status: Secure to meet the basic needs of family at this time. 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 FOB is able to take one week off of work to stay home with MOB and baby. Infant Supplies: MOB and FOB reported they currently have all of the supplies for baby at this time including but not limited to: crib, diapers, clothing, car seat and bottles. Childcare/Caregiver(s):? Primary caregiver will be MOB. FOB to assist after work. MOB and FOB also have a friend and family support system who can help when needed. Transportation:? Secure.? MOB and FOB both reported reliable transportation to get baby to and from all doctor?s appointments. Programs/Agencies Involved: ?None at this time and none needed. ?? Children Services/Legal Issues: Denied. Behavioral Health Issues: ??Mental Health History: TAMICA has a history of depression and anxiety and used to have severe panic attacks through her late 20?s.? MOB reported she was involved in counseling at that time through [facility] which she described to be very helpful at that time. MOB reported she?s currently on medication which she reported has helped manage symptoms and was described as very effective. FOB denied any history with any previous or current mental health. ??? Substance Use History: Denied. MOB used to drink socially however denied drinking alcohol during . ??Family History: None reported. ?Drug Screens: None ? Family/Social Stressors:? Denied Support Systems: Strong.? MOB and FOB both reported a strong support system with the biggest support being the MGM of baby. Depression/Shaken Baby/Safe Sleeping: Puzzle Assembler provided verbal and written education on PPD, Shaken Baby and Safe Sleeping.? Both MOB and FOB verbalized they understood. ? ASSESSMENT:? MOB and FOB consented to social work visit.? Upon arrival, MOB was observed to be in the hospital bed baby and the FOB was standing at the side of the hospital bed by MOB and baby was supporting MOB?s efforts to breastfeed and was stroking baby?s head when baby would begin to cry.? MOB and FOB both appeared to be very attached and bonded to baby and demonstrated positive interactions with one another as well as with baby.? After baby was done feeding, MOB wrapped baby more to stay warm.? Baby?s nitro man was identified as Dr. Schrader. Puzzle Assembler asked FOB to leave the room which both he and MOB agreed to and social was able to talk with MOB alone.? MOB reported she feels safe at home, denied any concerns of domestic violence, mental health issues or drug or alcohol abuse issues in the home.? No concerns noted.? Both MOB and FOB were verbally engaged during visit and both were very attentive to baby. Safe Plan of Care for related to substance use: Not needed.?? PLAN:? Baby to discharge home to MOB and FOB.? Puzzle Assembler also provided information on Help Me Grow. ?No other services requested or indicated. Kaylan Ng, PULPWOOD CUTTER, FILM COLOR TESTER
[2024-02-07 01:35] VITALS: BP 136/72; PULSE 90; RESP 15; TEMP 36.2; O2SAT 97
[2024-02-07 01:36] VITALS: BP 136/72; PULSE 93
--- NOTE | 2024-02-07 05:27 | NURSING ---
Reviewed and agreed with Karena TREJO charting.
--- NOTE | 2024-02-07 05:50 | PN.OBGYN_ITS ---
Subjective Subjective Patient doing well without complaints. Tolerating PO. Ambulating and voiding without difficulty. Feeding well. Denies chest pain, shortness of breath, calf pain/swelling, fevers, chills, lightheadedness. Objective Data Objective Data Vital Signs: Vital Signs Temp Pulse Resp BP Pulse Ox O2 Del Method 97.1 F L 93 15 136/72 H 97 Room Air 02/07/24 01:35 02/07/24 01:36 02/07/24 01:35 02/07/24 01:36 02/07/24 01:35 02/07/24 01:35 Oxygen Delivery Method Room Air Weight: 194 lb 3.2 oz Body Mass Index (BMI) 31.3 Intake & Output: Intake and Output for Last 24 Hours 02/05/24 02/06/24 02/07/24 23:59 23:59 23:59 Intake Total 2790.27 / 2790.27 700 / 700 Output Total 550 / 550 2700 / 2700 Balance 2240.27 / 2240.27 -1999 / Lab / Micro Data Attestation: I reviewed the patient's lab results. 02/05/24 12:50 ROS Constitutional Constitutional: Reports systems reviewed and no addt'l complaints, except as documented; Denies anorexia or headache(s) Cardiovascular Cardiovascular: Reports systems reviewed and no addt'l complaints, except as documented; Denies dizziness, dyspnea, nausea or tachypnea Respiratory/Chest Respiratory/Chest: Reports systems reviewed and no addt'l complaints, except as documented; Denies cough, dyspnea, shortness of breath at rest or tachypnea Gastrointestinal Gastrointestinal: Reports systems reviewed and no addt'l complaints, except as documented; Denies abdominal pain, constipation or nausea Genitourinary Genitourinary: Reports systems reviewed and no addt'l complaints, except as documented; Denies burning urination, difficulty urinating, dysuria, urinary frequency or urinary incontinence Musculoskeletal Musculoskeletal: Reports systems reviewed and no addt'l complaints, except as documented Integumentary Integumentary: Reports systems reviewed and no addt'l complaints, except as documented Neurologic Neurologic: Reports systems reviewed and no addt'l complaints, except as documented; Denies abnormal speech, dizziness or headache(s) Psychiatric Psychiatric: Reports systems reviewed and no addt'l complaints, except as documented Endocrine Endocrinology: Reports systems reviewed and no addt'l complaints, except as documented Hematologic/Lymphatic Hematologic/Lymphatic: Reports systems reviewed and no addt'l complaints, except as documented Physical Exam Const alert, oriented x3 and no apparent distress Neck full ROM Resp normal respiratory effort, normal air movement and no retractions Effort and Inspection: able to speak in complete sentences and symmetric chest movement GI soft to palpation Bladder / Kidney Exam: bladder normal to palpation Uterus Palpation: uterus fundus Extremity normal to inspection and full ROM Psych mental status grossly normal, thought process normal and cooperative Assessment & Plan (1) Retained placenta: (2) Vaginal delivery: COMMENT: KW IOL Girl PLAN: s/p PPD # 2 1. routine post delivery care 2. breast feeding- support given 3. rh positive 4. rubella immune 5. Discharge home (3) Encounter for induction of labor: (4) Positive GBS test: COMMENT: PCN in labor (5) Supervision of high-risk : QUALIFIERS: Trimester: third trimester Qualified Code(s): O09.93 - Supervision of high risk , unspecified, third trimester COMMENT: [id number], ENZO 02/12/24, PC Bermudez, Ariel (6) Advanced maternal age (AMA), 40 years or greater: COMMENT: recommended nipt. declines. NSTs wkly at 32 wk and del at 39 wk 32 and 36 wk US (7) : QUALIFIERS: Weeks of gestation: 38 weeks Qualified Code(s): Z 3A.38 - 38 weeks gestation of COMMENT: discussed genetic & carrier testing, declines., nl anatomy (8) Anxiety and depression: COMMENT: celexa, counseling encouraged. stable Charges/Coding Multi Select Codes Urinary/Genital Urinary/Genital CPT Codes: No Charge
--- NOTE | 2024-02-07 05:51 | DCINST_ITS ---
Discharge Instructions Diet Discharge Diet: No restrictions Activity Discharge Activity: Return to Normal Activity May resume sexual activity in: 6-8 weeks Dressing / Incision Call your doctor if you observe: Fever of 101 or Higher, Coldness, Increased Pain, Numbness or Tingling, Change in Color, Inability to urinate, Inability to have a bowel movement, Using more than 1 pad per hour, Shortness of breath, Dizziness, Fainting spells, Swelling in the ankles, Chest pain, Increased palpitations (irregular heartbeat), Calf discomfort and Uncontrolled pain Follow Up Care Please Follow Up With: Jess Valdez CNM When: Please call the office to schedule your follow up appointment in 6 weeks. If you had high blood pressure please call to schedule an appointment in 2 weeks. Test Results: Test results from this visit will be discussed in further detail at your follow- up appointment, if applicable. Discharge Plan Admission Admit Date/Time: 02/05/24 12:13 Attending Provider: Jess Valdez Primary Care Provider: Hai Doran Discharge Orders/Prescriptions Prescriptions: No Action prenat.vits,aissatou,[id number] Tablet 1 tab PO DAILY citalopram 20 mg tablet 20 mg PO DAILY Qty: 30 12RF Fish Oil 900-1,400 mg capsule,delayed release(DR/EC) 1 cap PO DAILY Referrals / Follow Up: Hai Doran DO [Primary Care Provider] - Disposition Disposition (needs filled in before D/C Order can be placed): Home, Self Care
[2024-02-07 08:16] VITALS: BP 131/72; PULSE 88; PULSE 91; O2SAT 97
[2024-02-07] MEDS: Ibuprofen 600 MG Tablet PO (08:18)
[2024-02-07 08:21] VITALS: BP 130/81; PULSE 92; RESP 17; TEMP 37.1; O2SAT 98
== END 2024-02-07 09:38 | disposition home or self-care (01) | DRG 768 ==
LOC: WPOUT 12:13 → WP 12:16
PROVIDERS: Admitting Provider Advanced Practice Midwife; PCP Family Medicine; Referring Provider Advanced Practice Midwife; Visit Provider Advanced Practice Midwife
DX: O73.0 Retained placenta without hemorrhage (principal); Z37.0 Single live birth; O26.23 Pregnancy care for patient with recurrent pregnancy loss, third trimester; B95.1 Streptococcus, group B, as the cause of diseases classified elsewhere; F32.A Depression, unspecified; F41.9 Anxiety disorder, unspecified; O70.0 First degree perineal laceration during delivery; O99.824 Streptococcus B carrier state complicating childbirth; O71.82 Other specified trauma to perineum and vulva; O69.81X0 Labor and delivery complicated by cord around neck, without compression, not applicable or unspecified; O99.344 Other mental disorders complicating childbirth; Z3A.39 39 weeks gestation of pregnancy
CPT/HCPCS: 59025; 59050; 85025; 86780; 86850; 86900; 86901; 99221; J7120; G0378